=== PATIENT | male | born 1930 | race Caucasian/White ===

== ENCOUNTER 2016-12-13 17:47 | Inpatient (IN) | payer OTHER ==
[~2016-12-13] VITALS: Ht 193 cm; Wt 195.8 kg
--- NOTE | 2016-12-13 18:51 | DIAGNOSTIC IMAGING REPORT ---
PROCEDURE: XR CHEST 1 VIEW INDICATION: WEAKNESS TECHNIQUE: Portable AP view 06:24 p.m. COMPARISON: Chest x-ray 03/30/2012 FINDINGS: Horizontal artifacts. Lungs are clear. Left-sided pacemaker. Heart and mediastinum are normal. Thorax is normal. No significant interval change. IMPRESSION: 1. No acute changes 2. Pacemaker
--- NOTE | 2016-12-13 19:38 | ED NURSING NOTES ---
Clinical Report - Nurses [place] [address] [place] [address] 12/13/2016 17:51 Patient: LELA BRAVO TRIAGE Triage time 1800 PM. Acuity: LEVEL 3. Chief Complaint: (weakness, cellulitis B/L). Alert. No acute distress. SHIVANI COMA SCORE: Shivani Coma Scale: 15- eyes open spontaneously (4); best verbal response- oriented x 4 (5); best motor response- obeys commands (6). --18:31 Erica You R.N. 18:06 12/13/16. BP: 124/54 (regular adult cuff) taken on the left arm, while lying. HR: 75. RR: 24. O2 saturation: 100%. Temp: 97.6 F. Pain level now: 5/10. --18:31 Erica You R.N. Weight: 181.4 kg stated. Height/Length: 76 inches Per Patient. BMI: 48.7. --18:06 Erica You R.N. Medications Albuterol Sulfate HFA Inhalation. --18:16 Erica You R.N. AmLODIPine Besylate Oral 10 mg, daily. --18:16 Erica oYu R.N. Plavix Oral 75 mg, daily. --18:18 Erica You R.N. Digoxin Oral 0.25 mg, daily. --18:18 Erica You R.N. Finasteride Oral 5 mg. --18:18 Erica You R.N. Gabapentin Oral (Capsule 300 mg), 3x a day. --18:20 Erica You R.N. Losartan Potassium Oral 50 mg. --18:20 Erica You R.N. Omeprazole Oral 20 mg, daily. --18:21 Erica You R.N. Prevastatin. --18:23 Erica You R.N. ROPINIRole HCl Oral (Tablet 1 mg) 2 tablets. --18:24 Erica You R.N. Tramadol HCL Oral 50 mg, daily as needed. --18:25 Erica You R.N. TraZODone HCl Oral 50 mg, daily. --18:25 Erica You R.N. Warfarin Sodium Oral 2 mg, daily. --18:26 Erica You R.N. Allergies Codeine. --20:57 Erica You R.N. Medication/allergy information source: the patient and patient's imported external medical record. --18:31 Erica You R.N. History Arrived by EMS. Primary physician (Jarrod). ( Pt brought in by EMS due to weakness and b/l lower extremity cellulitis, pt states has been falling times 2 today and a couple of times this week. Lives at home alone with demented . Family is concern and "wanting him to stay"). Onset. (3 weeks). He has had weakness, a cough and difficulty breathing. Reports muscle aches. 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 See EMS report. PAST MEDICAL HX: Immunizations: up-to-date. SOCIAL HX: Former smoker, end date 1990. Occasional alcohol use. No drug use. No infectious disease exposure. ABUSE ASSESSMENT: No report of abuse. SELF HARM ASSESSMENT: A self harm assessment was performed. The patient answered "no" to the question "Do you have thoughts of harming or killing yourself?" and "Have you recently had thoughts about harming or killing others?". NUTRITIONAL RISK ASSESSMENT: The nutritional risk assessment revealed no deficiencies. FUNCTIONAL ASSESSMENT: Functional assessment: no impairments noted. LEARNING NEEDS ASSESSMENT: The learning needs assessment revealed no barriers. SKIN INTEGRITY ASSESSMENT: Skin integrity risk assessment completed. No skin integrity risk identified. --18:31 Erica You R.N. PROBLEMS: Coronary Artery Disease. Atrial Fibrillation. Neuropathy. Immunizations. Hypertension. Myocardial Infarction. COPD - Chronic Obstructive Pulmonary Disease. Hypercholesterolemia. --18:06 Erica You R.N. ADDITIONAL SURGERIES: Cardiac Catheterization. Cardiac Procedures. L Leg Fx Repair. Pacemaker. --18:06 Erica You R.N. Interventions ID band on patient. --18:31 Erica You R.N. PHYSICAL ASSESSMENT To room via stretcher. GENERAL / NEURO / PSYCH: Alert. Oriented X 4. Appears in no acute distress. Appears anxious. He has had constant, generalized weakness. HEENT: Pupils equal, round and reactive to light. RESPIRATORY: Decreased breath sounds in the bases bilaterally; decreased breath sounds in the right lung base posteriorly; decreased breath sounds in the left lung base posteriorly. Inspiratory bilateral wheezes in the bases. CVS: Pulses: right dorsalis pedis 2+, left dorsalis pedis 2+, right posterior tibial 2+ and left posterior tibial 2+. Capillary refill is greater than 2 seconds. Pulses within normal limits. SKIN: Skin is warm and dry. Skin breakdown noted. --18:57 Erica You R.N. NURSING PROGRESS NOTES 18:37 12/13/2016 Site #1 started via IV in the right upper arm with an 18g angiocath, with aseptic technique and good blood return; one attempt. Blood drawn: rainbow set and cultures x1. Labeled in the presence of the patient and sent to the lab. Saline lock flushed with 10 mL saline (ultrasound guidance x 20 minutes). --18:47 Heidy Colon R.N. 18:45 12/13/16. BP: 96/45. HR: 60. RR: 18. O2 saturation: 94%. O2 started via nasal cannula at 2 liters/minute. Pain level now: 12/23. --19:00 Erica You R.N. Cardiac rhythm: atrial pacing and ventricular pacing. The initial plan of care for this patient has been created This plan of care was discussed with the patient. Oxygen administered by nasal cannula. assistant store manager trainee, pulse oximeter and NIBP monitor placed on patient. Patient gowned. Reassurance given. Reassessment after oxygen administered. He is calm. Overall patient status is the same- he states feels the same. ( B/L lower extremity with redness and warmth noted, pt denies having). Two patient identifiers checked. Call light placed in reach. Side rails up x 1. Bed placed in lowest position. Brakes of bed on. --19:00 Erica You R.N. 20:16 12/13/16. Cardiac rhythm: atrial pacing. Oxygen administered by nasal cannula at 2 liters. Monitoring of patient in place. Reassurance given. Reassessment after oxygen administered. He is calm. Overall patient status is the same- he states feels the same. RESPIRATORY: Expiratory bilateral wheezes in the bases. Two patient identifiers checked. Call light placed in reach. Side rails up x 2. Bed placed in lowest position. Brakes of bed on. --20:16 Erica You R.N. 20:00 12/13/16. BP: 96/58 (regular adult cuff) taken on the left arm, via an automated monitor, while lying. HR: 60. RR: 17. O2 saturation: 100% on nasal cannula at 2 liters/minute. Pain level now: 12/23. --20:16 Ercia You R.N. Cardiac rhythm: atrial pacing. Reassessment after oxygen administered. Overall patient status is the same- he states feels the same. --20:17 Erica You R.N. 19:06 12/13/16. BP: 99/52 (regular adult cuff) taken on the left arm, via an automated monitor, while lying. HR: 60. RR: 18. O2 saturation: 100% on room air. Pain level now: 10/25. --20:17 Erica You R.N. Patient ID band checked for patient name, birthdate and medical record number: patient confirmed. Catheterized urine collected with return of yellow-colored clear urine; sample sent to lab for urinalysis. Specimen labeled in the presence of the patient. ( pt cath as ordered due to pt unable to give us urine, pt tolerated procedure well. Awaiting on results, family spoken to about guidelines of admission, emotional support provided. [place] provided, vss). --20:27 Erica You R.N. 20:13 12/13/2016 Albuterol Neb [place] Nebulizer 1 unit dose given. Given by the respiratory therapist. Allergies verified and confirmed 5 rights. --20:28 Erica You R.N. 20:34 12/13/2016 Started bag #1 1000 mL IV Fluids IV NS (Saline); at 1000 mL/hr over 1 hour(s) via site #1 via IV pump. Allergies verified and confirmed 5 rights. IV patency established. IV site checked: no pain, redness, or swelling. IV flushed thoroughly pre- and post-medication administration. --20:34 Erica You R.N. 21:45 12/13/2016 IV Fluids IV NS Discontinued: bag #1 completed upon transfer. Total amount infused: 1000 mL. IV patency established. IV site checked: no pain, redness, or swelling. IV flushed thoroughly. --22:17 Erica You R.N. DISPOSITION / DISCHARGE 21:37 12/13/2016 Site #1 removed upon transfer. --22:03 Erica You R.N. Cardiac rhythm: atrial pacing. Departure time: 2155 PM. Condition at departure: improved and stable. The goals identified in the patient's plan of care were met. Transported via wheelchair by transport team. Report was given to a nurse via a phone call. Report included patient's care, treatment, medications, reviewed medication reconcilliation, and condition (including any recent changes or anticipated changes). All questions were answered. Report was acknowledged and care was transferred. (RN Cat). ( pt transferred to unit safely). Patient's personal items include: shirt, undergarments and lower denture; items were placed in belongings bag and transported with the patient. --22:16 Erica You R.N. 21:02 12/13/16. BP: 101/44 (large adult cuff) taken on the left arm, via an automated monitor, while sitting. HR: 60. RR: 18. O2 saturation: 95% on nasal cannula at 2 liters/minute. Temp: 98.6 F (oral). Pain level now: 0/10. --22:16 Erica You R.N. Locked/Released at 12/13/2016 22:18 by Erica You R.N.
--- NOTE | 2016-12-13 19:38 | ED ORDER SUMMARY ---
..... Patient: LELA BRAVO OrderSheet [facility] VisitID: [id number] [place] [address] 86y, M Registration Date/Time: 12/13/2016 ORDER SHEET Weight: 181.4 kg (stated) Allergies: Codeine GENERAL ORDERS: Chest 1V Urgent (18:21 12/13/2016 HBivens A.R.N.P.) (Ack 18:25 KHoerner) (18:47 KWilliams R.N.) CBC w Diff Urgent (18:21 12/13/2016 HBivens A.R.N.P.) (Ack 18:25 KHoerner) (18:47 KWilliams R.N.) CMP Urgent (18:21 12/13/2016 HBivens A.R.N.P.) (Ack 18:25 KHoerner) (18:47 KWilliams R.N.) BNP Urgent (18:21 12/13/2016 HBivens A.R.N.P.) (Ack 18:25 KHoerner) (18:47 KWilliams R.N.) UA-Culture if indicated Urgent (18:21 12/13/2016 HBivens A.R.N.P.) (Ack 18:25 KHoerner) (19:29 EHassan R.N.) MEDICATION ORDERS: Albuterol Neb Tx 1 unit dose (NOW) (20:16 12/13/2016 EHassan R.N. verbal order read back to HBivens A.R.N.P.) (20:28 EHassan R.N.) IV FLUIDS: IV Saline Lock (18:21 12/13/2016 HBivens A.R.N.P.) (18:47 KWilliams R.N.) IV NS : initial bolus 1000 mL (1000 mL/hr), then none - (NOW) (20:27 12/13/2016 HBivens A.R.N.P.) (20:34 EHassan R.N.) ORDER SHEET NOTES: [Electronically signed by Tiara FoxR.N.PAnktia (21:58 12/13/2016)] [Electronically signed by Erica You R.N. (:18 12/13/2016)] [Electronically locked/signed by Erica You R.N. (:12/13/2016)]
--- NOTE | 2016-12-13 19:38 | ED ORDER SUMMARY ---
..... Patient: LELA BRAVO OrderSheet [facility] VisitID: [id number] [place] [address] 86y, M Registration Date/Time: 12/13/2016 ORDER SHEET Weight: 181.4 kg (stated) Allergies: Codeine GENERAL ORDERS: Chest 1V Urgent (18:21 12/13/2016 HBivens A.R.N.P.) (Ack 18:25 KHoerner) (18:47 KWilliams R.N.) CBC w Diff Urgent (18:21 12/13/2016 HBivens A.R.N.P.) (Ack 18:25 KHoerner) (18:47 KWilliams R.N.) CMP Urgent (18:21 12/13/2016 HBivens A.R.N.P.) (Ack 18:25 KHoerner) (18:47 KWilliams R.N.) BNP Urgent (18:21 12/13/2016 HBivens A.R.N.P.) (Ack 18:25 KHoerner) (18:47 KWilliams R.N.) UA-Culture if indicated Urgent (18:21 12/13/2016 HBivens A.R.N.P.) (Ack 18:25 KHoerner) (19:29 EHassan R.N.) MEDICATION ORDERS: Albuterol Neb Tx 1 unit dose (NOW) (20:16 12/13/2016 EHassan R.N. verbal order read back to HBivens A.R.N.P.) (20:28 EHassan R.N.) IV FLUIDS: IV Saline Lock (18:21 12/13/2016 HBivens A.R.N.P.) (18:47 KWilliams R.N.) IV NS : initial bolus 1000 mL (1000 mL/hr), then none - (NOW) (20:27 12/13/2016 HBivens A.R.N.P.) (20:34 EHassan R.N.) ORDER SHEET NOTES: [Electronically signed by Tiara FoxR.N.PAnkita (21:58 12/13/2016)] [Electronically signed by Erica You R.N. (:18 12/13/2016)] [Electronically locked/signed by Erica You R.N. (:12/13/2016)]
--- NOTE | 2016-12-13 19:38 | ED CLINICAL REPORT ---
Clinical Report - Physicians/Mid Levels [facility] [address] [place] [place] [address] 12/13/2016 17:51 Patient: LELA BRAVO Time Seen: 18:08; initial patient contact, initial documentation, patient care assumed. Arrived- By ambulance. Historian- patient and family. HISTORY OF PRESENT ILLNESS Chief Complaint: WEAKNESS. This started about 2 - 3 weeks ago and is still present and worsening. The patient has had weakness. No numbness, tingling, impaired speech or swallowing or visual disturbance. No recent fall. He has had difficulty walking. It has been associated with weakness in both legs. No history of incontinence, affect changes, dizziness, recent trauma or headaches. No history of coordination problems. The patient has not had a shuffling gait. No dizziness. Usually is alert and oriented X3 and has normal mobility. (and uses power scooter). He is usually alert, oriented x3 and usually walks only with assistance. (so weak that he can not get out of chair to get into power scooter, getting weaker each day, and fell a few times). Similar symptoms previously: None. Recent medical care: Not recently seen/assessed. REVIEW OF SYSTEMS No fever, diarrhea, black stools, difficulty with urination or vomiting. No bloody stools. He has had difficulty breathing and a cough. All systems otherwise negative, except as recorded above. PAST HISTORY See nurses notes. ( PROBLEMS: Coronary Artery Disease. Atrial Fibrillation. Neuropathy. Immunizations. Hypertension. Myocardial Infarction. COPD - Chronic Obstructive Pulmonary Disease. Hypercholesterolemia. --18:06 Erica You RAnkitaN. ADDITIONAL SURGERIES: Cardiac Catheterization. Cardiac Procedures. L Leg Fx Repair. Pacemaker. --18:06 Erica You R.N.). SOCIAL HISTORY Never smoker. Occasional alcohol use. No drug use. No recent travel. Is a local resident. FAMILY HISTORY Negative. ADDITIONAL NOTES The nursing notes have been reviewed with agreement regarding the chief complaint, HPI, ROS, PMH and patient medications and allergies. PHYSICAL EXAM Vital Signs: 12/13/2016 18:06 BP: 124/54. HR: 75. RR: 24. O2 saturation: 100%. Temp: 97.6 F. Pain level now: 02/22. Have been reviewed as normal and appear to be correct. Appearance: Alert. No acute distress. Head: Head atraumatic. Eyes: Pupils equal, round and reactive to light. ENT: Normal ENT inspection. Airway intact. Pharynx normal. Neck: Normal inspection. Neck supple. CVS: Normal heart rate and rhythm. Heart sounds normal. Pulses normal. Respiratory: No respiratory distress. Breath sounds normal. Abdomen: Soft and nontender. No organomegaly. Severely obese (morbid). Back: Normal inspection. Rectal: Rectal exam normal. Skin: Skin warm and dry. Moderate pallor. Abnormal skin color. No rash. Normal skin turgor. (cellulitis areas noted to B shins, fungus/cellulitis to perineum and groin area). Extremities: Extremities exhibit normal ROM. No lower extremity edema. Neuro: Alert. Oriented X 3. Mood/affect normal. Speech normal. Cranial nerves normal (as tested). No cerebellar findings. No motor deficit. No sensory deficit. LABS, X-RAYS, AND EKG Chest X-ray: Normal Chest X-Ray. (IMPRESSION: 1. No acute changes 2. Pacemaker Electronically Final signed by:Warren Reynolds MD 12/13/2016 6:51:31 PM). The X-rays were interpreted by the radiologist and contemporaneously by me. Laboratory Tests: CBC w Diff: (LETICIA: 12/13/2016 18:40) ( MsgRcvd 12/13/2016 18:51) Final results Test Result Flag Units (Reference) WHITE BLOOD COUNT 8.6 K/uL (4.5-11.5) RED BLOOD COUNT 4.25 L M/uL (4.50-5.90) HEMOGLOBIN 8.4 L gm/dL (13.5-17.5) HEMATOCRIT 29.0 L % (41.0-53.0) MEAN CELL VOLUME 68 L fL (80-100) MEAN CORPUSCULAR HGB 20 L pg (26-34) MEAN CORPUSCULAR HGB CONC 29 L g/dL (31-37) RED CELL DISTRIBUTION WIDTH 23.0 H % (11.6-14.8) PLATELET COUNT 255 K/uL (150-400) NEUTROPHIL % 75.7 H % (50-75) LYMPH % 10.2 L % (25-40) MONO % 9.4 % (3-14) EOSINOPHIL % 4.4 H % (0-4) BASOPHIL % 0.3 % (0-2) BNP: (LETICIA: 12/13/2016 18:40) ( MsgRcvd 12/13/2016 19:11) Final results Test Result Flag Units (Reference) B-TYPE NATRIURETIC PEPTIDE 759 H pg/ml (5-100) CMP: (LETICIA: 12/13/2016 18:40) ( MsgRcvd 12/13/2016 19:07) Final results Test Result Flag Units (Reference) GLUCOSE 106 mg/dL (70-110) BUN 63 H mg/dL (7-18) CREATININE 1.6 H mg/dL (0.6-1.3) Estimated GFR 43.67 mL/min Estimated GFR- 52.93 mL/min Note: Persistent reduction over 3 months in eGFR<60 mL/min/1.73 m2 defines CKD. Patients with eGFR values>=60 mL/min/1.73 m2 may also have CKD if evidence ofpersistent proteinuria. Additional information may be foundat www.kidney.org. SODIUM 142 mmol/L (136-145) POTASSIUM 4.6 mmol/L (3.5-5.1) CHLORIDE 107 mmol/L (98-107) CARBON DIOXIDE 29 mmol/L (21-32) CALCIUM 7.7 L mg/dL (8.5-10.1) TOTAL PROTEIN 7.1 g/dL (6.4-8.2) ALBUMIN 2.8 L g/dL (3.3-5.0) BILIRUBIN, TOTAL 0.4 mg/dL (0.0-1.0) ALKALINE PHOSPHATASE 76 U/L (46-116) AST (SGOT) 24 U/L (15-37) ALT (SGPT) 17 U/L (12-78) . PROGRESS AND PROCEDURES Course of Care: 1935. tx options being discussed with Dr. Vivar, not sure if pt meets admission criteria, agreed to call him back after urine results 1944. tx options being discussed with pt and family, upon entering room pt sitting on side of bed, stood and ambulated with assistance to head of bed for repositioning, rectal exam done 20:27 12/13/16. spoke to Dr Vivar again re lab result update 21:21 12/13/16. Dr Vivar here. Discussed case with on-call health care provider, (call returned 19:36 Dr Vivar). Reviewed test results and need for additional work-up. Agreed upon decision to admit. Health care provider will see patient in hospital. Differential Diagnosis: Other possible considerations: anemia, chf, cellulitis, thyroid, electrolyte imbalance. Above considerations are based on history, physical exam and laboratory data. Differential diagnosis was discussed with patient. Disposition: Admitted to Acute Care. 20:27. Condition: good and stable. CLINICAL IMPRESSION Acute generalized weakness. Dehydration. Acute renal insufficiency. Mild acute anemia. Cellulitis of the right lower leg and left lower leg. (Electronically signed by Tiara Fox A.R.N.P. 12/13/2016 21:58)
--- NOTE | 2016-12-13 21:13 | History & Physical Report ---
Admission Admit Date 12/13/16 History Chief Complaint Weakness History of Present Illness Patient is an 86 year old male with a past medical history of Obesity, Coronary Artery Disease, Essential Hypertension, Hyperlipidemia, Myocardial Infarction, Atrial Fibrillation, COPD, and a remote hx of Tobacco Use Disorder. He presents to the ER at [facility] complaining of generalized weakness. Pt states his symptoms have been present for nearly a month now, but seem to be worsening. Pt states recently has been falling at home as he is so weak. Pt states he is unable to complete his ADLs secondary to his profound weakness. Pt states he fell twice today while attempting to transfer. He normally uses a scooter to get around. Pt denies any nausea, vomiting, dizziness, headache, visual changes, chest pain, and shortness of breath. He also denies any dysuria and urinary frequency. In the ER, pt was found to have a significantly elevated BUN and Creatinine and he does not have a hx of CKD in the past. He has been taking all of his medications as prescribed and has been eating and drinking normally. No other complaints or concerns at this time. Patient History 1. Essential hypertension 2. Hyperlipidemia 3. Coronary artery disease 4. Myocardial infarction 5. Atrial fibrillation 6. COPD (chronic obstructive pulmonary disease) Social History Pt does have a hx of tobacco use disorder, however he quit smoking in 1990. Pt denies consumption of alcohol and any hx of illicit drug use. Family History Family history was reviewed; no changes noted. Medications and Allergies Medications Current Medications Sig/Irlanda Start time Last Medication Dose Route Stop Time Status Admin Acetaminophen 650 MG Q6H PRN 12/13 2100 UNV PO Docusate Sodium 250 MG BID PRN 12/13 2100 UNV PO Hydromorphone HCl 1 MG Q6H PRN 12/13 2100 UNV IV Naloxone HCl 0.4 MG PRN PRN 12/13 2100 UNV IV Ondansetron HCl 4 MG Q6H PRN 12/13 2100 UNV IV Sodium Chloride 1,000 ML ASDIRECTED 12/13 2099 UNV IV Allergies Coded Allergies: Codeine (03/31/12) Review of Systems Other All systems reviewed and are negative except for what has already been mentioned in the HPI. Physical Exam Vital Signs / I&Os Vital Signs Date Time Temp Pulse Resp B/P Pulse O2 O2 Flow FiO2 Ox Delivery Rate 12/13 2010 97.6 75 18 124/54 100% NC 1.5 Other GENERAL: NAD; Pt laying comfortably in bed CARDIAC: RRR, No M/R/G appreciated PULM: Clear to auscultation bilaterally ABD: Soft, NT, ND, Positive BS in all quadrants; No hepatosplenomegaly appreciated EXT: No C/C/E in bilateral upper and lower extremity; No calve tenderness bilaterally SKIN: Warm, dry, pink, and intact NEURO: Alert and oriented x3; Following all commands PSYCH: Normal mood and affect LAB Results Laboratory Tests 12/13 Chemistry B-Natriuretic Peptide (5 - 100 pg/ml) 759 Urines Urine Color YELLOW Urine Appearance CLEAR Urine pH (5.0 - 8.0) 5.5 Ur Specific [place] (1.010 - 1.030) 1.020 Urine Protein (NEGATIVE) NEGATIVE Urine Ketones (NEGATIVE) NEGATIVE Urine Blood (NEGATIVE) NEGATIVE Urine Nitrite (NEGATIVE) NEGATIVE Urine Bilirubin (NEGATIVE) NEGATIVE Urine Urobilinogen (0.2 - 1.0 EU/dL) 0.2 Ur Leukocyte Esterase (NEGATIVE) NEGATIVE Urine RBC (0 - 1 rbc/hpf) NONE SEEN Urine WBC (0 - 1 wbc/hpf) RARE Ur Epithelial Cells (0 - 5 EPI/hpf) 0-1 Urine Bacteria (NONE SEEN) NONE SEEN Urine Glucose (NEGATIVE) NEGATIVE Urine Comment CULT NOT INDICATED 12/13 1839 Chemistry Plasma Sodium (136 - 145 mmol/L) 142 Plasma Potassium (3.5 - 5.1 mmol/L) 4.6 Plasma Chloride (98 - 107 mmol/L) 107 CO2 (Enzymatic) (21 - 32 mmol/L) 29 BUN (7 - 18 mg/dL) 63 Creatinine (0.6 - 1.3 mg/dL) 1.6 Est GFR ( Amer) (mL/min) 52.93 Est GFR (Non-Af Amer) (mL/min) 43.67 Glucose (70 - 110 mg/dL) 106 Plasma Calcium (8.5 - 10.1 mg/dL) 7.7 Total Bilirubin (0.0 - 1.0 mg/dL) 0.4 AST (15 - 37 U/L) 24 ALT (12 - 78 U/L) 17 Alkaline Phosphatase (46 - 116 U/L) 76 Total Protein (6.4 - 8.2 g/dL) 7.1 Albumin (3.3 - 5.0 g/dL) 2.8 Hematology WBC (4.5 - 11.5 K/uL) 8.6 RBC (4.50 - 5.90 M/uL) 4.25 Hgb (13.5 - 17.5 gm/dL) 8.4 Hct (41.0 - 53.0 %) 29.0 MCV (80 - 100 fL) 68 MCH (26 - 34 pg) 20 RDW (11.6 - 14.8 %) 23.0 Neut % (Auto) (50 - 75 %) 75.7 Lymph % (Auto) (25 - 40 %) 10.2 [place] % (Auto) (3 - 14 %) 9.4 Eos % (Auto) (0 - 4 %) 4.4 Baso % (Auto) (0 - 2 %) 0.3 Plt Count, EDTA (150 - 400 K/uL) 255 RBC Morphology (4358 A) 1+ MICROCYTOSIS PUBS MCHC (31 - 37 g/dL) 29 Imaging Chest x-ray does not reveal any acute cardiopulmonary process. Assessment and Plan Problem List 1. Acute kidney injury Plan - Etiology unclear - Will start pt on IV Normal Saline at 125 mL/hour - Avoid nephrotoxic substances - Hold home Losartan for now - Repeat BMP in AM - Check renal ultrasound in AM - Will check a urine Na and urine creatinine now 2. Generalized weakness Plan - Etiology unclear - Will have PT evaluation pt tomorrow 3. Essential hypertension Plan - Continue home Amlodipine 10 mg PO daily - Hold Losartan for now given #1 - Monitor BP closely 4. Hyperlipidemia Plan - Pt is normally on statin therapy at home and this will be continued 5. Coronary artery disease Plan - Continue home Plavix 75 mg PO daily - Continue home statin therapy, once dosage confirmed in AM 6. Atrial fibrillation Plan - This is paroxysmal - Continue home Warfarin 2 mg PO daily - Continue Digoxin 0.25 mg PO daily Pt is admitted to hospital under inaptient status as his length of stay is anticipated to be greater than 2 midnights
--- NOTE | 2016-12-13 22:18 | ED DISCHARGE INSTRUCTIONS ---
Patient: LELA BRAVO General Instructions [facility] VisitID: [id number] [address] [place] [address] 86y, M Registration Date/Time: 12/13/2016 Acute generalized weakness. Dehydration. Acute renal insufficiency. Mild acute anemia. Cellulitis of the right lower leg and left lower leg. (Electronically signed by Tiara Fox A.R.N.P. 12/13/2016 21:58)
--- NOTE | 2016-12-13 22:18 | ED MED RECONCILIATION SUMMARY ---
Patient: LELA BRAVO Medication Reconciliation Report [facility] VisitID: [id number] [address] [place] [address] 86y, M Registration Date/Time: 12/13/2016 Weight: 181.4 kg Height/Length: 76 in. BMI: 48.7 ALLERGIES: Codeine The patient's Home Medications are listed below: THE FOLLOWING MEDICATIONS NEED TO BE RECONCILED: Albuterol Sulfate HFA Inhalation AmLODIPine Besylate Oral 10 mg, daily Digoxin Oral 0.25 mg, daily Finasteride Oral 5 mg Gabapentin Oral (300 mg), 3x a day Losartan Potassium Oral 50 mg Omeprazole Oral 20 mg, daily Plavix Oral 75 mg, daily Prevastatin ROPINIRole HCl Oral (1 mg) 2 tablets Tramadol HCL Oral 50 mg, daily TraZODone HCl Oral 50 mg, daily Warfarin Sodium Oral 2 mg, daily The source(s) of the original Home Medication information: patient patient's imported external medical record The following Medications were given to the patient in the Emergency Department: Albuterol [Neb Tx] Neb TX 1 unit dose, administered: 12/13/2016 8:13:00 PM IV NS IV Fluids bolus 0, then 1000 mL/hr, administered: 12/13/2016 8:34:00 PM The following Medications were prescribed to the patient: None.
--- NOTE | 2016-12-13 22:18 | ED MAR SUMMARY ---
..... Medication Administration Record [facility] [address] [place] [address] Patient: LELA BRAVO Visit ID: [id number] 86y, M Weight: 181.4 kg Height/Length: 76 in BMI: 48.7 ALLERGIES: Codeine Given 20:13 12/13/2016 Erica You R.N. Medication Administered: ALBUTEROL [NEB TX], Dose: 1 unit dose Nebulizer Neb TX. Medication Ordered: Albuterol Neb Tx 1 unit dose (NOW). Start 20:34 12/13/2016 Erica You RAnkitaNAnkita, Stop 21:45 12/13/2016 Erica You R.N. Medication Administered: IV NS (SALINE), Dose: IV Fluids over 1 hour(s), Rate: 1000 mL/hr, Dispensed: 1000 mL bag, Site: #1 right upper arm. Medication Ordered: IV NS : initial bolus 1000 mL (1000 mL/hr), then none - (NOW).
--- NOTE | 2016-12-13 22:18 | ED MAR SUMMARY ---
..... Medication Administration Record [facility] [address] [place] [address] Patient: LELA BRAVO Visit ID: [id number] 86y, M Weight: 181.4 kg Height/Length: 76 in BMI: 48.7 ALLERGIES: Codeine Given 20:13 12/13/2016 Erica You R.N. Medication Administered: ALBUTEROL [NEB TX], Dose: 1 unit dose Nebulizer Neb TX. Medication Ordered: Albuterol Neb Tx 1 unit dose (NOW). Start 20:34 12/13/2016 Erica You RAnkitaNAnkita, Stop 21:45 12/13/2016 Erica You R.N. Medication Administered: IV NS (SALINE), Dose: IV Fluids over 1 hour(s), Rate: 1000 mL/hr, Dispensed: 1000 mL bag, Site: #1 right upper arm. Medication Ordered: IV NS : initial bolus 1000 mL (1000 mL/hr), then none - (NOW).
--- NOTE | 2016-12-13 22:18 | ED MED RECONCILIATION SUMMARY ---
Patient: LELA BRAVO Medication Reconciliation Report [facility] VisitID: [id number] [address] [place] [address] 86y, M Registration Date/Time: 12/13/2016 Weight: 181.4 kg Height/Length: 76 in. BMI: 48.7 ALLERGIES: Codeine The patient's Home Medications are listed below: THE FOLLOWING MEDICATIONS NEED TO BE RECONCILED: Albuterol Sulfate HFA Inhalation AmLODIPine Besylate Oral 10 mg, daily Digoxin Oral 0.25 mg, daily Finasteride Oral 5 mg Gabapentin Oral (300 mg), 3x a day Losartan Potassium Oral 50 mg Omeprazole Oral 20 mg, daily Plavix Oral 75 mg, daily Prevastatin ROPINIRole HCl Oral (1 mg) 2 tablets Tramadol HCL Oral 50 mg, daily TraZODone HCl Oral 50 mg, daily Warfarin Sodium Oral 2 mg, daily The source(s) of the original Home Medication information: patient patient's imported external medical record The following Medications were given to the patient in the Emergency Department: Albuterol [Neb Tx] Neb TX 1 unit dose, administered: 12/13/2016 8:13:00 PM IV NS IV Fluids bolus 0, then 1000 mL/hr, administered: 12/13/2016 8:34:00 PM The following Medications were prescribed to the patient: None.
--- NOTE | 2016-12-13 22:18 | ED DISCHARGE INSTRUCTIONS ---
Patient: LELA BRAVO General Instructions [facility] VisitID: [id number] [address] [place] [address] 86y, M Registration Date/Time: 12/13/2016 Acute generalized weakness. Dehydration. Acute renal insufficiency. Mild acute anemia. Cellulitis of the right lower leg and left lower leg. (Electronically signed by Tiara Fox A.R.N.P. 12/13/2016 21:58)
[2016-12-13 22:47] VITALS: BP 102/46
[2016-12-14] MEDS ORDERED: ALBUTEROL HFA60 DOSE IN (00:52)
[2016-12-14] MEDS ORDERED: DIGITEK0.25 MG PO (00:53)
[2016-12-14] MEDS ORDERED: PLAVIX75 MG PO (00:53)
[2016-12-14] MEDS ORDERED: AMLODIPINE BESY10 MG PO (00:53)
[2016-12-14] MEDS ORDERED: FINASTERIDE5 MG PO (00:54)
[2016-12-14] MEDS ORDERED: GABAPENTIN300 MG PO (00:54)
[2016-12-14] MEDS ORDERED: COZAAR50 MG PO (00:55)
[2016-12-14] MEDS ORDERED: OMEPRAZOLE20 M1 PO (00:55)
[2016-12-14] MEDS ORDERED: PRAVACHOL20 MG (00:56)
[2016-12-14] MEDS ORDERED: ROPINIROLE HCL1 MG PO (00:57)
[2016-12-14] MEDS ORDERED: TRAMADOL HCL50 MG PO (00:57)
[2016-12-14] MEDS ORDERED: TRAZODONE HCL50 MG PO (00:58)
[2016-12-14] MEDS ORDERED: COUMADIN2 MG PO (00:58)
[2016-12-14 02:48] VITALS: BP 139/95
[2016-12-14 07:17] VITALS: BP 132/89
[2016-12-14 11:30] VITALS: BP 137/58
[2016-12-14 14:40] VITALS: BP 124/54
--- NOTE | 2016-12-14 15:25 | Progress Note ---
Subjective General Note Date: December 14, 2016 Admission Date: December 13, 2016 Hospital Day: 2 PCP: Shorty Ibarra-[facility] [place] Status: Inpatient Advanced Directive: FULL CODE Room: 207 Brief History: The patient is a 86-year-old white male with a significant past medical history of morbid obesity, COPD, coronary artery disease, hypertension, chronic anticoagulation, atrial fibrillation, heart block status post pacemaker placement, who presented to [facility] emergency department secondary to generalized weakness. [facility] ER evaluation was consistent with acute renal insufficiency, generalized weakness, hypertension, and paroxysmal atrial fibrillation. Secondary to the above, the patient was admitted by Yao Vivar M.D. for further evaluation and treatment. For other history present illness, past medical history, family history, social history, review of systems, and admission physical examination please see the patient's history and physical examination and ER visit note in the patient's medical record. Subjective: The patient states he is doing somewhat better today. Persistent lower extremity edema, weakness Patient requests: None Medications and Allergies Medications Current Medications Sig/Irlanda Start time Last Medication Dose Route Stop Time Status Admin Nystatin See Dose TID 12/14 2200 AC Insts (1) TOP Digoxin 250 MCG DAILY@1400 12/14 1400 AC PO Warfarin Sodium 2 MG DAILY@1400 12/14 1400 AC PO Albuterol/Ipratropium 3 ML Q6H PRN 12/14 1300 AC 12/14 IN 1418 Amlodipine Besylate 10 MG DAILY 12/14 0900 AC 12/14 PO 0805 Clopidogrel Bisulfate 75 MG DAILY 12/14 0900 AC 12/14 PO 0804 Acetaminophen 650 MG Q6H PRN 12/13 2130 AC 12/14 PO 0652 Docusate Sodium 250 MG BID PRN 12/13 2100 AC PO Hydromorphone HCl 1 MG Q6H PRN 12/13 2100 AC 12/14 IV 0804 Naloxone HCl 0.4 MG PRN PRN 12/13 2100 AC IV Ondansetron HCl 4 MG Q6H PRN 12/13 2100 AC IV Sodium Chloride 1,000 ML ASDIRECTED 12/13 2100 AC 12/14 IV 1409 Dose Instructions: (1)Nystatin: TO AFFECTED AREA Allergies Coded Allergies: Codeine (03/31/12) Physical Exam Vital Signs / I&Os Vital Signs Date Time Temp Pulse Resp B/P Pulse O2 O2 Flow FiO2 Ox Delivery Rate 12/14 1440 98.2 74 20 124/54 95 Nasal 4.0 Cannula 12/14 1427 4.0 12/14 1407 56 12/14 1130 97.9 59 20 137/58 95 Nasal 4.0 Cannula 12/14 0717 97.7 52 20 132/89 95 Nasal 4.0 Cannula 12/14 0248 97.5 77 24 139/95 93 Nasal 4.0 Cannula 12/14 0002 Nasal 4.0 Cannula 12/13 2247 102/46 12/136 97.3 59 24 94 Nasal 4.5 Cannula 12/13 2201 3.0 12/13 2010 1.5 I&O 12/14 0000 12/13 1600 12/13 0800 Intake Total 0 Output Total 0 Balance 0 General Appearance Alert, Oriented X3, Cooperative, No acute distress Lungs Minimal expiratory wheezes. Scattered rhonchi Cardiovascular Regular rate and rhythm, Normal S1 and S2, No murmurs, gallops, rubs Abdomen Normal bowel sounds, Soft, No tenderness, pendulous Extremities No cyanosis, No clubbing, edema to the thighs. Neurological Cranial nerves intact, No lateralizing signs Psych/Mental Status Mental status normal, Mood normal LAB Results Laboratory Tests 12/14 12/13 0550 2004 Chemistry Plasma Sodium (136 - 145 mmol/L) 142 Plasma Potassium (3.5 - 5.1 mmol/L) 4.8 Plasma Chloride (98 - 107 mmol/L) 108 CO2 (Enzymatic) (21 - 32 mmol/L) 26 BUN (7 - 18 mg/dL) 66 Creatinine (0.6 - 1.3 mg/dL) 1.7 Est GFR ( Amer) (mL/min) 49.36 Est GFR (Non-Af Amer) (mL/min) 40.72 Glucose (70 - 110 mg/dL) 135 Plasma Calcium (8.5 - 10.1 mg/dL) 7.4 Hematology WBC (4.5 - 11.5 K/uL) 9.5 RBC (4.50 - 5.90 M/uL) 4.10 Hgb (13.5 - 17.5 gm/dL) 8.2 Hct (41.0 - 53.0 %) 28.1 MCV (80 - 100 fL) 68 MCH (26 - 34 pg) 20 RDW (11.6 - 14.8 %) 22.1 Neut % (Auto) (50 - 75 %) 75.2 Lymph % (Auto) (25 - 40 %) 10.8 [place] % (Auto) (3 - 14 %) 10.1 Eos % (Auto) (0 - 4 %) 3.7 Baso % (Auto) (0 - 2 %) 0.2 Plt Count, EDTA (150 - 400 K/uL) 235 RBC Morphology (36514 A) 2+ ANISOCYTOSIS PUBS MCHC (31 - 37 g/dL) 29 Urines Urine Color YELLOW Urine Appearance CLEAR Urine pH (5.0 - 8.0) 5.5 Ur Specific [place] (1.010 - 1.030) 1.020 Urine Protein (NEGATIVE) NEGATIVE Urine Ketones (NEGATIVE) NEGATIVE Urine Blood (NEGATIVE) NEGATIVE Urine Nitrite (NEGATIVE) NEGATIVE Urine Bilirubin (NEGATIVE) NEGATIVE Urine Urobilinogen (0.2 - 1.0 EU/dL) 0.2 Ur Leukocyte Esterase (NEGATIVE) NEGATIVE Urine RBC (0 - 1 rbc/hpf) NONE SEEN Urine WBC (0 - 1 wbc/hpf) RARE Ur Epithelial Cells (0 - 5 EPI/hpf) 0-1 Urine Bacteria (NONE SEEN) NONE SEEN Urine Glucose (NEGATIVE) NEGATIVE Urine Comment CULT NOT INDICATED 12/13 12/13 1840 1840 Chemistry Plasma Sodium (136 - 145 mmol/L) 142 Plasma Potassium (3.5 - 5.1 mmol/L) 4.6 Plasma Chloride (98 - 107 mmol/L) 107 CO2 (Enzymatic) (21 - 32 mmol/L) 29 BUN (7 - 18 mg/dL) 63 Creatinine (0.6 - 1.3 mg/dL) 1.6 Est GFR ( Amer) (mL/min) 52.93 Est GFR (Non-Af Amer) (mL/min) 43.67 Glucose (70 - 110 mg/dL) 106 Plasma Calcium (8.5 - 10.1 mg/dL) 7.7 Total Bilirubin (0.0 - 1.0 mg/dL) 0.4 AST (15 - 37 U/L) 24 ALT (12 - 78 U/L) 17 Alkaline Phosphatase (46 - 116 U/L) 76 B-Natriuretic Peptide (5 - 100 pg/ml) 759 Total Protein (6.4 - 8.2 g/dL) 7.1 Albumin (3.3 - 5.0 g/dL) 2.8 Hematology WBC (4.5 - 11.5 K/uL) 8.6 RBC (4.50 - 5.90 M/uL) 4.25 Hgb (13.5 - 17.5 gm/dL) 8.4 Hct (41.0 - 53.0 %) 29.0 MCV (80 - 100 fL) 68 MCH (26 - 34 pg) 20 RDW (11.6 - 14.8 %) 23.0 Neut % (Auto) (50 - 75 %) 75.7 Lymph % (Auto) (25 - 40 %) 10.2 [place] % (Auto) (3 - 14 %) 9.4 Eos % (Auto) (0 - 4 %) 4.4 Baso % (Auto) (0 - 2 %) 0.3 Plt Count, EDTA (150 - 400 K/uL) 255 RBC Morphology (4358 A) 1+ MICROCYTOSIS PUBS MCHC (31 - 37 g/dL) 29 Imaging Chest X-Ray IMPRESSION: 1. No acute changes 2. Pacemaker Dictated by: ABDI CUEVAS MD D: LANIRIS;12/13/16 4040 Assessment and Plan Problem List 1. COPD (chronic obstructive pulmonary disease) Plan -History of COPD -DuoNeb one via nebulizer every 6 hours, albuterol when necessary -Oxygen as necessary -Monitor 2. Generalized weakness Plan -Patient presents with generalized weakness. -Total body water elevated with generalized edema -BUN/creatinine suggestive of prerenal azotemia -Physical therapy evaluation -Probable need for long-term placement -Patient unable to arise from bed or carry out any significant ADLs 3. Coronary artery disease Plan -Patient with history of coronary artery disease, status post myocardial infarction -Asymptomatic this time -Monitor 4. Acute kidney injury Plan -Patient with elevated BUN/creatinine -BUN/creatinine ratio suggestive of prerenal azotemia -Monitor 5. Essential hypertension Plan -Patient with history of essential hypertension -Monitor -Blood pressure well controlled 124/54 mmHg -Low-salt diet 6. Anemia Status Acute Onset Date Unknown Plan -Patient with findings of anemia -Microcytic anemia most likely iron deficiency -MCV 68, H&H 8.2.1 -Check iron studies, B12, folate -Monitor 7. Chronic anticoagulation Status Chronic Onset Date Unknown Plan -Patient with history of chronic anticoagulation secondary to paroxysmal atrial fibrillation -Check INR -Continue anticoagulation Current status: Fair, unstable Anticipated discharge date: Anticipated discharge in 1-2 days with improved status Anticipated discharge placement: care home facility Patient care time: Time spent in chart review, patient interview, physical exam, CPOE, and care documentation: 35 minutes Visit to patient today: 2 Complexity of care: High E&M Codes Rounding: Inpt-High/[id number]
--- NOTE | 2016-12-14 15:25 | Progress Note ---
Subjective General Note Date: December 14, 2016 Admission Date: December 13, 2016 Hospital Day: 2 PCP: Shorty Ibarra[facility] [place] Status: Inpatient Advanced Directive: FULL CODE Room: 207 Brief History: The patient is a 86-year-old white male with a significant past medical history of morbid obesity, COPD, coronary artery disease, hypertension, chronic anticoagulation, atrial fibrillation, heart block status post pacemaker placement, who presented to [facility] emergency department secondary to generalized weakness. [facility] ER evaluation was consistent with acute renal insufficiency, generalized weakness, hypertension, and paroxysmal atrial fibrillation. Secondary to the above, the patient was admitted by Yao Vivar M.D. for further evaluation and treatment. For other history present illness, past medical history, family history, social history, review of systems, and admission physical examination please see the patient's history and physical examination and ER visit note in the patient's medical record. Subjective: The patient states he is doing somewhat better today. Persistent lower extremity edema, weakness Patient requests: None Medications and Allergies Medications Current Medications Sig/Irlanda Start time Last Medication Dose Route Stop Time Status Admin Nystatin See Dose TID 12/14 2200 AC Insts (1) TOP Digoxin 250 MCG DAILY@1400 12/14 1400 AC PO Warfarin Sodium 2 MG DAILY@1400 12/14 1400 AC PO Albuterol/Ipratropium 3 ML Q6H PRN 12/14 1300 AC 12/14 IN 1418 Amlodipine Besylate 10 MG DAILY 12/14 0900 AC 12/14 PO 0805 Clopidogrel Bisulfate 75 MG DAILY 12/14 0900 AC 12/14 PO 0804 Acetaminophen 650 MG Q6H PRN 12/13 2130 AC 12/14 PO 0652 Docusate Sodium 250 MG BID PRN 12/13 2100 AC PO Hydromorphone HCl 1 MG Q6H PRN 12/13 2100 AC 12/14 IV 0804 Naloxone HCl 0.4 MG PRN PRN 12/13 2100 AC IV Ondansetron HCl 4 MG Q6H PRN 12/13 2100 AC IV Sodium Chloride 1,000 ML ASDIRECTED 12/13 2100 AC 12/14 IV 1409 Dose Instructions: (1)Nystatin: TO AFFECTED AREA Allergies Coded Allergies: Codeine (03/31/12) Physical Exam Vital Signs / I&Os Vital Signs Date Time Temp Pulse Resp B/P Pulse O2 O2 Flow FiO2 Ox Delivery Rate 12/14 1440 98.2 74 20 124/54 95 Nasal 4.0 Cannula 12/14 1427 4.0 12/14 1407 56 12/14 1130 97.9 59 20 137/58 95 Nasal 4.0 Cannula 12/14 0717 97.7 52 20 132/89 95 Nasal 4.0 Cannula 12/14 0248 97.5 77 24 139/95 93 Nasal 4.0 Cannula 12/14 0002 Nasal 4.0 Cannula 12/13 2247 102/46 12/136 97.3 59 24 94 Nasal 4.5 Cannula 12/13 2201 3.0 12/13 2010 1.5 I&O 12/14 0000 12/13 1600 12/13 0800 Intake Total 0 Output Total 0 Balance 0 General Appearance Alert, Oriented X3, Cooperative, No acute distress Lungs Minimal expiratory wheezes. Scattered rhonchi Cardiovascular Regular rate and rhythm, Normal S1 and S2, No murmurs, gallops, rubs Abdomen Normal bowel sounds, Soft, No tenderness, pendulous Extremities No cyanosis, No clubbing, edema to the thighs. Neurological Cranial nerves intact, No lateralizing signs Psych/Mental Status Mental status normal, Mood normal LAB Results Laboratory Tests 12/14 12/13 0550 2004 Chemistry Plasma Sodium (136 - 145 mmol/L) 142 Plasma Potassium (3.5 - 5.1 mmol/L) 4.8 Plasma Chloride (98 - 107 mmol/L) 108 CO2 (Enzymatic) (21 - 32 mmol/L) 26 BUN (7 - 18 mg/dL) 66 Creatinine (0.6 - 1.3 mg/dL) 1.7 Est GFR ( Amer) (mL/min) 49.36 Est GFR (Non-Af Amer) (mL/min) 40.72 Glucose (70 - 110 mg/dL) 135 Plasma Calcium (8.5 - 10.1 mg/dL) 7.4 Hematology WBC (4.5 - 11.5 K/uL) 9.5 RBC (4.50 - 5.90 M/uL) 4.10 Hgb (13.5 - 17.5 gm/dL) 8.2 Hct (41.0 - 53.0 %) 28.1 MCV (80 - 100 fL) 68 MCH (26 - 34 pg) 20 RDW (11.6 - 14.8 %) 22.1 Neut % (Auto) (50 - 75 %) 75.2 Lymph % (Auto) (25 - 40 %) 10.8 [place] % (Auto) (3 - 14 %) 10.1 Eos % (Auto) (0 - 4 %) 3.7 Baso % (Auto) (0 - 2 %) 0.2 Plt Count, EDTA (150 - 400 K/uL) 235 RBC Morphology (04002 A) 2+ ANISOCYTOSIS PUBS MCHC (31 - 37 g/dL) 29 Urines Urine Color YELLOW Urine Appearance CLEAR Urine pH (5.0 - 8.0) 5.5 Ur Specific [place] (1.010 - 1.030) 1.020 Urine Protein (NEGATIVE) NEGATIVE Urine Ketones (NEGATIVE) NEGATIVE Urine Blood (NEGATIVE) NEGATIVE Urine Nitrite (NEGATIVE) NEGATIVE Urine Bilirubin (NEGATIVE) NEGATIVE Urine Urobilinogen (0.2 - 1.0 EU/dL) 0.2 Ur Leukocyte Esterase (NEGATIVE) NEGATIVE Urine RBC (0 - 1 rbc/hpf) NONE SEEN Urine WBC (0 - 1 wbc/hpf) RARE Ur Epithelial Cells (0 - 5 EPI/hpf) 0-1 Urine Bacteria (NONE SEEN) NONE SEEN Urine Glucose (NEGATIVE) NEGATIVE Urine Comment CULT NOT INDICATED 12/13 12/13 1840 1840 Chemistry Plasma Sodium (136 - 145 mmol/L) 142 Plasma Potassium (3.5 - 5.1 mmol/L) 4.6 Plasma Chloride (98 - 107 mmol/L) 107 CO2 (Enzymatic) (21 - 32 mmol/L) 29 BUN (7 - 18 mg/dL) 63 Creatinine (0.6 - 1.3 mg/dL) 1.6 Est GFR ( Amer) (mL/min) 52.93 Est GFR (Non-Af Amer) (mL/min) 43.67 Glucose (70 - 110 mg/dL) 106 Plasma Calcium (8.5 - 10.1 mg/dL) 7.7 Total Bilirubin (0.0 - 1.0 mg/dL) 0.4 AST (15 - 37 U/L) 24 ALT (12 - 78 U/L) 17 Alkaline Phosphatase (46 - 116 U/L) 76 B-Natriuretic Peptide (5 - 100 pg/ml) 759 Total Protein (6.4 - 8.2 g/dL) 7.1 Albumin (3.3 - 5.0 g/dL) 2.8 Hematology WBC (4.5 - 11.5 K/uL) 8.6 RBC (4.50 - 5.90 M/uL) 4.25 Hgb (13.5 - 17.5 gm/dL) 8.4 Hct (41.0 - 53.0 %) 29.0 MCV (80 - 100 fL) 68 MCH (26 - 34 pg) 20 RDW (11.6 - 14.8 %) 23.0 Neut % (Auto) (50 - 75 %) 75.7 Lymph % (Auto) (25 - 40 %) 10.2 [place] % (Auto) (3 - 14 %) 9.4 Eos % (Auto) (0 - 4 %) 4.4 Baso % (Auto) (0 - 2 %) 0.3 Plt Count, EDTA (150 - 400 K/uL) 255 RBC Morphology (4358 A) 1+ MICROCYTOSIS PUBS MCHC (31 - 37 g/dL) 29 Imaging Chest X-Ray IMPRESSION: 1. No acute changes 2. Pacemaker Dictated by: ABDI CUEVAS MD D: LANIRIS;12/13/16 0204 Assessment and Plan Problem List 1. COPD (chronic obstructive pulmonary disease) Plan -History of COPD -DuoNeb one via nebulizer every 6 hours, albuterol when necessary -Oxygen as necessary -Monitor 2. Generalized weakness Plan -Patient presents with generalized weakness. -Total body water elevated with generalized edema -BUN/creatinine suggestive of prerenal azotemia -Physical therapy evaluation -Probable need for shelter placement -Patient unable to arise from bed or carry out any significant ADLs 3. Coronary artery disease Plan -Patient with history of coronary artery disease, status post myocardial infarction -Asymptomatic this time -Monitor 4. Acute kidney injury Plan -Patient with elevated BUN/creatinine -BUN/creatinine ratio suggestive of prerenal azotemia -Monitor 5. Essential hypertension Plan -Patient with history of essential hypertension -Monitor -Blood pressure well controlled 124/54 mmHg -Low-salt diet 6. Anemia Status Acute Onset Date Unknown Plan -Patient with findings of anemia -Microcytic anemia most likely iron deficiency -MCV 68, H&H 8.2.1 -Check iron studies, B12, folate -Monitor 7. Chronic anticoagulation Status Chronic Onset Date Unknown Plan -Patient with history of chronic anticoagulation secondary to paroxysmal atrial fibrillation -Check INR -Continue anticoagulation Current status: Fair, unstable Anticipated discharge date: Anticipated discharge in 1-2 days with improved status Anticipated discharge placement: [facility] facility Patient care time: Time spent in chart review, patient interview, physical exam, CPOE, and care documentation: 35 minutes Visit to patient today: 2 Complexity of care: High E&M Codes Rounding: Inpt-High/[id number]
[2016-12-14 18:31] VITALS: BP 103/45
[2016-12-14 22:10] VITALS: BP 124/53
[2016-12-15 03:15] VITALS: BP 121/90
[2016-12-15 06:37] VITALS: BP 145/81
[2016-12-15 09:54] VITALS: BP 147/68
[2016-12-15 14:30] VITALS: BP 121/94
--- NOTE | 2016-12-15 17:44 | DIAGNOSTIC IMAGING REPORT ---
REFERRING PHYSICIAN/PROVIDER: Jarad Santana MD CONSULTING SOFTWARE ASSET MANAGEMENT ANALYST: Randy Harrell Jr MD INDICATION: CHF Procedure: A two-dimensional transthoracic echocardiogram with color flow and Doppler was performed in limited views only. The study quality was technically limited. There is no prior echocardiogram noted for this patient. Patient was not able to lie in supine position due to respiratory distress. The patient was in normal sinus rhythm during the exam. Left Ventricle: The left ventricle is grossly normal size. Left ventricular systolic function is probably normal. Diastolic function could not be accurately assessed due to unobtainable data. Right Ventricle: The right ventricle is mildly dilated. Right ventricular function cannot be assessed due to poor image quality. Mitral Valve: The mitral valve is not well visualized. The mitral valve is grossly normal. Aortic Valve: The aortic valve is not well visualized. There is no aortic regurgitation. Tricuspid Valve: The tricuspid valve is not well visualized. The tricuspid valve is not well visualized, but is grossly normal. Pulmonic Valve: The pulmonic valve is not well visualized. There is no significant valvular heart disease. Great Vessels: The aortic root is normal size. The ascending aorta is mildly enlarged. Pericardium/ Pleura There is no pericardial effusion. IMPRESSION: The left ventricle is grossly normal size. Left ventricular systolic function is probably normal. The right ventricle is mildly dilated. Right ventricular function cannot be assessed due to poor image quality. There is no obvious valvular heart disease. The aortic root is normal size. The ascending aorta is mildly enlarged. There is no pericardial effusion.
--- NOTE | 2016-12-15 18:00 | Progress Note ---
Subjective General Note Date: December 15, 2016 Admission Date: December 13, 2016 Hospital Day: 3 PCP: Shorty Ibarra-[facility] [place] Status: Inpatient Advanced Directive: FULL CODE Room: 207 Brief History: The patient is a 86-year-old white male with a significant past medical history of morbid obesity, COPD, coronary artery disease, hypertension, chronic anticoagulation, atrial fibrillation, heart block status post pacemaker placement, who presented to [facility] emergency department secondary to generalized weakness. [facility] ER evaluation was consistent with acute renal insufficiency, generalized weakness, hypertension, and paroxysmal atrial fibrillation. Secondary to the above, the patient was admitted by Yao Vivar M.D. for further evaluation and treatment. For other history present illness, past medical history, family history, social history, review of systems, and admission physical examination please see the patient's history and physical examination and ER visit note in the patient's medical record. Subjective: The patient states he is doing somewhat better today. Persistent lower extremity edema, weakness. Mild anxiety. Patient requests: None Medications and Allergies Medications Current Medications Sig/Irlanda Start time Last Medication Dose Route Stop Time Status Admin Hydrocortisone See Dose TID 12/15 1400 AC 12/15 Insts (1) TOP 1354 Nystatin See Dose TID 12/14 2200 AC 12/15 Insts (2) TOP 1327 Digoxin 250 MCG DAILY@1400 / 1400 AC 12/15 PO 1344 Albuterol/Ipratropium 3 ML Q6H PRN 12/14 1300 AC 12/15 IN 0755 Amlodipine Besylate 10 MG DAILY 12/14 0900 AC 12/15 PO 0826 Clopidogrel Bisulfate 75 MG DAILY 12/14 0900 AC 12/15 PO 0826 Acetaminophen 650 MG Q6H PRN 12/13 2130 AC 12/15 PO 1354 Docusate Sodium 250 MG BID PRN 12/13 2100 AC PO Hydromorphone HCl 1 MG Q6H PRN 12/13 2100 AC 12/15 IV 1438 Naloxone HCl 0.4 MG PRN PRN 12/13 2100 AC IV Ondansetron HCl 4 MG Q6H PRN 12/13 2100 AC IV Dose Instructions: (1)Hydrocortisone: APPLY TO AFFECTED AREA (2)Nystatin: TO AFFECTED AREA Allergies Coded Allergies: Codeine (03/31/12) Physical Exam Vital Signs / I&Os Vital Signs Date Time Temp Pulse Resp B/P Pulse O2 O2 Flow FiO2 Ox Delivery Rate 12/15 1637 Nasal 4.0 Cannula 12/15 1430 98.4 58 20 121/94 100 Nasal 6.0 Cannula 12/15 1344 60 12/15 1000 4.0 12/15 0954 97.5 76 21 147/68 94 Nasal 4.0 Cannula 12/15 0837 4.0 12/15 0637 96.4 59 16 145/81 94 Nasal 4.0 Cannula 12/15 0422 Nasal 4.0 Cannula 12/15 0315 97.9 62 16 121/90 94 Nasal 4.0 Cannula 12/14 2210 99.3 56 20 124/53 96 Nasal 4.0 Cannula 12/14 1831 97.3 90 20 103/45 94 Nasal 4.0 Cannula I&O 12/15 0000 12/14 1600 12/14 0800 Intake Total 1553 409 6882 Output Total 450 175 200 Balance 0571 049 1514 General Appearance Alert, Oriented X3, Cooperative, No acute distress Lungs Scattered rhonchi, minimal expiratory wheezes Cardiovascular Regular rate and rhythm, Normal S1 and S2 Abdomen Normal bowel sounds, Soft, No tenderness Extremities No cyanosis, No clubbing, bilateral lower extremity edema unchanged Skin erythematous patches anterior shins bilaterally Neurological Cranial nerves intact, No lateralizing signs Psych/Mental Status Mental status normal, Mood normal LAB Results Laboratory Tests 12/15 0745 Chemistry Plasma Sodium (136 - 145 mmol/L) 142 Plasma Potassium (3.5 - 5.1 mmol/L) 4.5 Plasma Chloride (98 - 107 mmol/L) 108 CO2 (Enzymatic) (21 - 32 mmol/L) 24 BUN (7 - 18 mg/dL) 53 Creatinine (0.6 - 1.3 mg/dL) 1.3 Est GFR ( Amer) (mL/min) >60 Est GFR (Non-Af Amer) (mL/min) 55.50 Glucose (70 - 110 mg/dL) 130 Plasma Calcium (8.5 - 10.1 mg/dL) 7.7 Total Bilirubin (0.0 - 1.0 mg/dL) 0.5 AST (15 - 37 U/L) 27 ALT (12 - 78 U/L) 16 Alkaline Phosphatase (46 - 116 U/L) 69 Total Protein (6.4 - 8.2 g/dL) 6.8 Albumin (3.3 - 5.0 g/dL) 2.7 Coagulation INR (0.8 - 1.2) 3.7 Hematology WBC (4.5 - 11.5 K/uL) 9.6 RBC (4.50 - 5.90 M/uL) 4.13 Hgb (13.5 - 17.5 gm/dL) 8.3 Hct (41.0 - 53.0 %) 28.3 MCV (80 - 100 fL) 69 MCH (26 - 34 pg) 20 RDW (11.6 - 14.8 %) 22.4 Neut % (Auto) (50 - 75 %) 75.4 Lymph % (Auto) (25 - 40 %) 10.7 [place] % (Auto) (3 - 14 %) 9.6 Eos % (Auto) (0 - 4 %) 4.0 Baso % (Auto) (0 - 2 %) 0.3 Plt Count, EDTA (150 - 400 K/uL) 233 RBC Morphology (17096 A) 1+ POIKILOCYTOSIS PUBS MCHC (31 - 37 g/dL) 29 Assessment and Plan Problem List 1. COPD (chronic obstructive pulmonary disease) Plan -mild persistent wheezing -DuoNeb every 6 hours, albuterol every 3 hours when necessary -Monitor O2 requirements which appears stable -Check arterial blood gas 2. Generalized weakness Plan -unchanged -Physical therapy consultation/follow-up -Patient will [facility] in [facility] for ongoing care posthospitalization 3. Anemia Status Acute Onset Date Unknown Plan -Mild -Iron studies consistent with iron deficiency anemia -Monitor -Ferrous sulfate 325 mg by mouth twice a day. 4. Chronic anticoagulation Status Chronic Onset Date Unknown Plan -persistent elevation of INR -INR 3.7 -Hold Coumadin -Monitor 5. Atrial fibrillation Plan -patient with history of PAF -Sinus rhythm -Continue outpatient medical regimen/anticoagulation -Monitor -echocardiogram obtained showing normal left ventricular function, no significant valvular abnormalities 6. Coronary artery disease Plan -Patient with history of coronary disease -No complaints of chest pain -Monitor Current status: Fair, unchanged Anticipated discharge date: Anticipated discharge in 2-3 days Anticipated discharge placement: residential facility Patient care time: Time spent in chart review, patient interview, physical exam, CPOE, and care documentation: 25 minutes Visit to patient today: 1 Complexity of care: Moderate E&M Codes Rounding: Inpt-Moderate/[id number]
--- NOTE | 2016-12-15 18:00 | Progress Note ---
Subjective General Note Date: December 15, 2016 Admission Date: December 13, 2016 Hospital Day: 3 PCP: Shorty Ibarra-[facility] [place] Status: Inpatient Advanced Directive: FULL CODE Room: 207 Brief History: The patient is a 86-year-old white male with a significant past medical history of morbid obesity, COPD, coronary artery disease, hypertension, chronic anticoagulation, atrial fibrillation, heart block status post pacemaker placement, who presented to [facility] emergency department secondary to generalized weakness. [facility] ER evaluation was consistent with acute renal insufficiency, generalized weakness, hypertension, and paroxysmal atrial fibrillation. Secondary to the above, the patient was admitted by Yao Vivar M.D. for further evaluation and treatment. For other history present illness, past medical history, family history, social history, review of systems, and admission physical examination please see the patient's history and physical examination and ER visit note in the patient's medical record. Subjective: The patient states he is doing somewhat better today. Persistent lower extremity edema, weakness. Mild anxiety. Patient requests: None Medications and Allergies Medications Current Medications Sig/Irlanda Start time Last Medication Dose Route Stop Time Status Admin Hydrocortisone See Dose TID 12/15 1400 AC 12/15 Insts (1) TOP 1354 Nystatin See Dose TID 12/14 2200 AC 12/15 Insts (2) TOP 1327 Digoxin 250 MCG DAILY@1400 / 1400 AC 12/15 PO 1344 Albuterol/Ipratropium 3 ML Q6H PRN 12/14 1300 AC 12/15 IN 0755 Amlodipine Besylate 10 MG DAILY 12/14 0900 AC 12/15 PO 0826 Clopidogrel Bisulfate 75 MG DAILY 12/14 0900 AC 12/15 PO 0826 Acetaminophen 650 MG Q6H PRN 12/13 2130 AC 12/15 PO 1354 Docusate Sodium 250 MG BID PRN 12/13 2100 AC PO Hydromorphone HCl 1 MG Q6H PRN 12/13 2100 AC 12/15 IV 1438 Naloxone HCl 0.4 MG PRN PRN 12/13 2100 AC IV Ondansetron HCl 4 MG Q6H PRN 12/13 2100 AC IV Dose Instructions: (1)Hydrocortisone: APPLY TO AFFECTED AREA (2)Nystatin: TO AFFECTED AREA Allergies Coded Allergies: Codeine (03/31/12) Physical Exam Vital Signs / I&Os Vital Signs Date Time Temp Pulse Resp B/P Pulse O2 O2 Flow FiO2 Ox Delivery Rate 12/15 1637 Nasal 4.0 Cannula 12/15 1430 98.4 58 20 121/94 100 Nasal 6.0 Cannula 12/15 1344 60 12/15 1000 4.0 12/15 0954 97.5 76 21 147/68 94 Nasal 4.0 Cannula 12/15 0837 4.0 12/15 0637 96.4 59 16 145/81 94 Nasal 4.0 Cannula 12/15 0422 Nasal 4.0 Cannula 12/15 0315 97.9 62 16 121/90 94 Nasal 4.0 Cannula 12/14 2210 99.3 56 20 124/53 96 Nasal 4.0 Cannula 12/14 1831 97.3 90 20 103/45 94 Nasal 4.0 Cannula I&O 12/15 0000 12/14 1600 12/14 0800 Intake Total 7418 464 4396 Output Total 450 175 200 Balance 9669 417 2842 General Appearance Alert, Oriented X3, Cooperative, No acute distress Lungs Scattered rhonchi, minimal expiratory wheezes Cardiovascular Regular rate and rhythm, Normal S1 and S2 Abdomen Normal bowel sounds, Soft, No tenderness Extremities No cyanosis, No clubbing, bilateral lower extremity edema unchanged Skin erythematous patches anterior shins bilaterally Neurological Cranial nerves intact, No lateralizing signs Psych/Mental Status Mental status normal, Mood normal LAB Results Laboratory Tests 12/15 0745 Chemistry Plasma Sodium (136 - 145 mmol/L) 142 Plasma Potassium (3.5 - 5.1 mmol/L) 4.5 Plasma Chloride (98 - 107 mmol/L) 108 CO2 (Enzymatic) (21 - 32 mmol/L) 24 BUN (7 - 18 mg/dL) 53 Creatinine (0.6 - 1.3 mg/dL) 1.3 Est GFR ( Amer) (mL/min) >60 Est GFR (Non-Af Amer) (mL/min) 55.50 Glucose (70 - 110 mg/dL) 130 Plasma Calcium (8.5 - 10.1 mg/dL) 7.7 Total Bilirubin (0.0 - 1.0 mg/dL) 0.5 AST (15 - 37 U/L) 27 ALT (12 - 78 U/L) 16 Alkaline Phosphatase (46 - 116 U/L) 69 Total Protein (6.4 - 8.2 g/dL) 6.8 Albumin (3.3 - 5.0 g/dL) 2.7 Coagulation INR (0.8 - 1.2) 3.7 Hematology WBC (4.5 - 11.5 K/uL) 9.6 RBC (4.50 - 5.90 M/uL) 4.13 Hgb (13.5 - 17.5 gm/dL) 8.3 Hct (41.0 - 53.0 %) 28.3 MCV (80 - 100 fL) 69 MCH (26 - 34 pg) 20 RDW (11.6 - 14.8 %) 22.4 Neut % (Auto) (50 - 75 %) 75.4 Lymph % (Auto) (25 - 40 %) 10.7 White % (Auto) (3 - 14 %) 9.6 Eos % (Auto) (0 - 4 %) 4.0 Baso % (Auto) (0 - 2 %) 0.3 Plt Count, EDTA (150 - 400 K/uL) 233 RBC Morphology (38871 A) 1+ POIKILOCYTOSIS PUBS MCHC (31 - 37 g/dL) 29 Assessment and Plan Problem List 1. COPD (chronic obstructive pulmonary disease) Plan -mild persistent wheezing -DuoNeb every 6 hours, albuterol every 3 hours when necessary -Monitor O2 requirements which appears stable -Check arterial blood gas 2. Generalized weakness Plan -unchanged -Physical therapy consultation/follow-up -[facility] will [facility] in [facility] for [facility] care posthospitalization 3. Anemia Status Acute Onset Date Unknown Plan -Mild -Iron studies consistent with iron deficiency anemia -Monitor -Ferrous sulfate 325 mg by mouth twice a day. 4. Chronic anticoagulation Status Chronic Onset Date Unknown Plan -persistent elevation of INR -INR 3.7 -Hold Coumadin -Monitor 5. Atrial fibrillation Plan -patient with history of PAF -Sinus rhythm -Continue outpatient medical regimen/anticoagulation -Monitor -echocardiogram obtained showing normal left ventricular function, no significant valvular abnormalities 6. Coronary artery disease Plan -Patient with history of coronary disease -No complaints of chest pain -Monitor Current status: Fair, unchanged Anticipated discharge date: Anticipated discharge in 2-3 days Anticipated discharge placement: alf facility Patient care time: Time spent in chart review, patient interview, physical exam, CPOE, and care documentation: 25 minutes Visit to patient today: 1 Complexity of care: Moderate E&M Codes Rounding: Inpt-Moderate/[id number]
[2016-12-15 19:06] VITALS: BP 143/51
[2016-12-15 22:56] VITALS: BP 130/46
[2016-12-16 02:26] VITALS: BP 169/52
[2016-12-16 06:42] VITALS: BP 138/49
[2016-12-16 11:10] VITALS: BP 137/55
[2016-12-16 14:06] VITALS: BP 135/54
[2016-12-16 16:43] VITALS: BP 137/75
--- NOTE | 2016-12-16 17:03 | Progress Note ---
Subjective General Note Date: December 16, 2016 Admission Date: December 13, 2016 Hospital Day: 4 PCP: Shorty Ibarra[facility] [place] Status: Inpatient Advanced Directive: FULL CODE Room: 207 Brief History: The patient is a 86-year-old white male with a significant past medical history of morbid obesity, COPD, coronary artery disease, hypertension, chronic anticoagulation, atrial fibrillation, heart block status post pacemaker placement, who presented to [facility] emergency department secondary to generalized weakness. [facility] ER evaluation was consistent with acute renal insufficiency, generalized weakness, hypertension, and paroxysmal atrial fibrillation. Secondary to the above, the patient was admitted by Yao Vivar M.D. for further evaluation and treatment. For other history present illness, past medical history, family history, social history, review of systems, and admission physical examination please see the patient's history and physical examination and ER visit note in the patient's medical record. Subjective: The patient states he is doing somewhat better today. Persistent lower extremity edema, weakness. Mild anxiety. Patient requests: None Medications and Allergies Medications Current Medications Sig/Irlanda Start time Last Medication Dose Route Stop Time Status Admin Ropinirole HCl 2 MG QHS 12/16 2100 AC PO Trimethoprim/ 1 TAB BID 12/16 1700 UNVr Sulfamethoxazole PO Gabapentin 300 MG TID 12/16 1400 AC 12/16 PO 1330 Finasteride 5 MG DAILY 12/16 1111 AC 12/16 PO 1330 Ferrous Sulfate 325 MG BIDWC 12/16 0900 AC 12/16 PO 0906 Albuterol/Ipratropium 3 ML RTQ6H 12/16 0200 AC 12/16 IN 1352 Acetaminophen/ See Dose Q4H PRN 12/15 2015 AC 12/16 Hydrocodone Bitart Insts (1) PO 1330 Hydrocortisone See Dose TID 12/15 1400 AC 12/16 Insts (2) TOP 1408 Nystatin See Dose TID 12/14 2200 AC 12/16 Insts (3) TOP 1409 Digoxin 250 MCG DAILY@1400 12/14 1400 AC 12/16 PO 1330 Amlodipine Besylate 10 MG DAILY 12/14 0900 AC 12/16 PO 0906 Clopidogrel Bisulfate 75 MG DAILY 12/14 0900 AC 12/16 PO 0906 Acetaminophen 650 MG Q6H PRN 12/13 2130 AC 12/15 PO 1958 Docusate Sodium 250 MG BID PRN 02/28 2100 AC PO Naloxone HCl 0.4 MG PRN PRN 12/13 2099 AC IV Ondansetron HCl 4 MG Q6H PRN 12/13 2099 AC IV Dose Instructions: (1)Acetaminophen/Hydrocodone Bitart: 1 - 2 TABLETS (2)Hydrocortisone: APPLY TO AFFECTED AREA (3)Nystatin: TO AFFECTED AREA Allergies Coded Allergies: Codeine (03/31/12) Physical Exam Vital Signs / I&Os Vital Signs Date Time Temp Pulse Resp B/P Pulse O2 O2 Flow FiO2 Ox Delivery Rate 12/16 1643 98.2 65 20 137/75 88 Nasal 2.0 Cannula 12/16 1406 98.6 74 20 135/54 91 Nasal 2.0 Cannula 12/16 1340 2.0 12/16 1330 75 12/16 1110 98.8 66 22 137/55 92 2.0 12/16 1000 Nasal 2.0 Cannula 12/16 0642 99.0 69 21 138/49 91 Nasal 4.0 Cannula 12/16 0226 98.1 80 22 169/52 93 Nasal 4.0 Cannula 12/16 0130 Nasal 4.0 Cannula 12/16 0108 4.0 12/15 2256 98.1 90 20 130/46 96 Nasal 4.0 Cannula 12/15 2030 4.0 12/15 1934 4.0 12/15 1906 98.1 61 20 143/51 94 Nasal 4.0 Cannula I&O 12/16 0000 12/15 1600 12/15 0800 Intake Total 500 1440 1500 Output Total 728 641 3592 Balance -375 1140 500 General Appearance Cooperative, No acute distress, slightly lethargic Lungs Scattered rhonchi. No rales noted. Cardiovascular Regular rate and rhythm, Normal S1 and S2 Abdomen Normal bowel sounds, Soft, pendulous Extremities No cyanosis, No clubbing, Edema unchanged Neurological Cranial nerves intact, No lateralizing signs Psych/Mental Status Confused, mood depressed LAB Results Laboratory Tests 12/16 12/16 12/15 0603 0603 2004 Blood Gas Sample Site LR Total CO2 (24.0 - 30.0 mmol/L) 26.4 ABG pH (7.35 - 7.45) 7.42 ABG pCO2 at Pt Temp (35 - 45 mmHg) 39.2 ABG pO2 at Pt Temp (60.0 - 80.0 mmHg) 62.6 ABG HCO3 (20.0 - 26.0 mmol/L) 25.2 ABG O2 Sat Calc/Saeid (95.1 - 100.0 %) 93.3 ABG Base Excess (-6.0 - -6.0 mmol/L) 0.6 ABG Reduced Hgb (%) 6.6 ABG Carboxyhemoglobin (0.5 - 1.5 %) 2.7 ABG Methemoglobin (0.4 - 1.5 %) -0.5 Vivek Test YES Other Total Hgb (14.0 - 18.0 g/dL) 7.6 A-a O2 Gradient (7.0 - 14.0 mmHg) 150.6 Hgb O2 Saturation (95.0 - 100.0 %) 91.2 Respiration Rate (/MIN) 18 O2 Liters/Min (0 - 20 L/MIN) 4 Vent Mode NC FiO2 (20 - 101 %) 36 Chemistry Plasma Sodium (136 - 145 mmol/L) 142 Plasma Potassium (3.5 - 5.1 mmol/L) 4.4 Plasma Chloride (98 - 107 mmol/L) 108 CO2 (Enzymatic) (21 - 32 mmol/L) 25 BUN (7 - 18 mg/dL) 48 Creatinine (0.6 - 1.3 mg/dL) 1.4 Est GFR ( Amer) (mL/min) >60 Est GFR (Non-Af Amer) (mL/min) 50.95 Glucose (70 - 110 mg/dL) 154 Plasma Calcium (8.5 - 10.1 mg/dL) 7.6 B-Natriuretic Peptide (5 - 100 pg/ml) 792 Coagulation Protein C Antigen Pending Hematology WBC (4.5 - 11.5 K/uL) 8.6 RBC (4.50 - 5.90 M/uL) 3.75 Hgb (13.5 - 17.5 gm/dL) 7.4 Hct (41.0 - 53.0 %) 25.8 MCV (80 - 100 fL) 69 MCH (26 - 34 pg) 20 RDW (11.6 - 14.8 %) 22.4 Neut % (Auto) (50 - 75 %) 73.1 Lymph % (Auto) (25 - 40 %) 11.5 [place] % (Auto) (3 - 14 %) 10.6 Eos % (Auto) (0 - 4 %) 4.3 Baso % (Auto) (0 - 2 %) 0.5 Plt Count, EDTA (150 - 400 K/uL) 217 RBC Morphology (03613 A) 1+ OVALOCYTOSIS PUBS MCHC (31 - 37 g/dL) 29 Assessment and Plan Problem List 1. COPD (chronic obstructive pulmonary disease) Plan -Stable -Pulmonary exam improved -Continue DuoNeb every 6 hours -Supplemental oxygen as necessary 2. Generalized weakness Plan -Patient with generalized weakness -Status unchanged -Patient will require shelter placement due to morbid obesity, generalized weakness and inability to perform any ADLs. 3. Chronic anticoagulation Status Chronic Onset Date Unknown Plan -INR elevated 4.1 -Hold Coumadin -Monitor 4. Iron deficiency anemia Status Chronic Onset Date Unknown Plan -Patient with findings of iron deficiency anemia -Ferrous Sulfate 325 mg by mouth twice a day -Monitor 5. Atrial fibrillation Plan -Normal sinus rhythm -Monitor 6. Essential hypertension Plan -Blood pressure well controlled -Low-salt diet -Monitor 7. Cellulitis Status Acute Onset Date Unknown Plan -The patient has erythematous patches present anterior peng bilaterally -We'll begin Bactrim DS 1 by mouth twice a day -Monitor 8. Prerenal azotemia Status Acute Onset Date Unknown Plan -Mild -Improved -Continue present therapy -Monitor Current status: Fair, stable Anticipated discharge date: Anticipated discharge in 1-2 days Anticipated discharge placement: half-way facility Patient care time: Time spent in chart review, patient interview, physical exam, CPOE, and care documentation: 25 minutes Visit to patient today: 1 Complexity of care: Moderate
--- NOTE | 2016-12-16 17:03 | Progress Note ---
Subjective General Note Date: December 16, 2016 Admission Date: December 13, 2016 Hospital Day: 4 PCP: Shorty Ibarra-[facility] [place] Status: Inpatient Advanced Directive: FULL CODE Room: 207 Brief History: The patient is a 86-year-old white male with a significant past medical history of morbid obesity, COPD, coronary artery disease, hypertension, chronic anticoagulation, atrial fibrillation, heart block status post pacemaker placement, who presented to [facility] emergency department secondary to generalized weakness. [facility] ER evaluation was consistent with acute renal insufficiency, generalized weakness, hypertension, and paroxysmal atrial fibrillation. Secondary to the above, the patient was admitted by Yao Vivar M.D. for further evaluation and treatment. For other history present illness, past medical history, family history, social history, review of systems, and admission physical examination please see the patient's history and physical examination and ER visit note in the patient's medical record. Subjective: The patient states he is doing somewhat better today. Persistent lower extremity edema, weakness. Mild anxiety. Patient requests: None Medications and Allergies Medications Current Medications Sig/Irlanda Start time Last Medication Dose Route Stop Time Status Admin Ropinirole HCl 2 MG QHS 12/16 2100 AC PO Trimethoprim/ 1 TAB BID 12/16 1700 UNVr Sulfamethoxazole PO Gabapentin 300 MG TID 12/16 1400 AC 12/16 PO 1330 Finasteride 5 MG DAILY 12/16 1111 AC 12/16 PO 1330 Ferrous Sulfate 325 MG BIDWC 12/16 0900 AC 12/16 PO 0906 Albuterol/Ipratropium 3 ML RTQ6H 12/16 0200 AC 12/16 IN 1352 Acetaminophen/ See Dose Q4H PRN 12/15 2015 AC 12/16 Hydrocodone Bitart Insts (1) PO 1330 Hydrocortisone See Dose TID 12/15 1400 AC 12/16 Insts (2) TOP 1408 Nystatin See Dose TID 12/14 2200 AC 12/16 Insts (3) TOP 1409 Digoxin 250 MCG DAILY@1400 12/14 1400 AC 12/16 PO 1330 Amlodipine Besylate 10 MG DAILY 12/14 0900 AC 12/16 PO 0906 Clopidogrel Bisulfate 75 MG DAILY 12/14 0900 AC 12/16 PO 0906 Acetaminophen 650 MG Q6H PRN 12/13 2130 AC 12/15 PO 1958 Docusate Sodium 250 MG BID PRN 02/28 2100 AC PO Naloxone HCl 0.4 MG PRN PRN 12/13 2099 AC IV Ondansetron HCl 4 MG Q6H PRN 12/13 2099 AC IV Dose Instructions: (1)Acetaminophen/Hydrocodone Bitart: 1 - 2 TABLETS (2)Hydrocortisone: APPLY TO AFFECTED AREA (3)Nystatin: TO AFFECTED AREA Allergies Coded Allergies: Codeine (03/31/12) Physical Exam Vital Signs / I&Os Vital Signs Date Time Temp Pulse Resp B/P Pulse O2 O2 Flow FiO2 Ox Delivery Rate 12/16 1643 98.2 65 20 137/75 88 Nasal 2.0 Cannula 12/16 1406 98.6 74 20 135/54 91 Nasal 2.0 Cannula 12/16 1340 2.0 12/16 1330 75 12/16 1110 98.8 66 22 137/55 92 2.0 12/16 1000 Nasal 2.0 Cannula 12/16 0642 99.0 69 21 138/49 91 Nasal 4.0 Cannula 12/16 0226 98.1 80 22 169/52 93 Nasal 4.0 Cannula 12/16 0130 Nasal 4.0 Cannula 12/16 0108 4.0 12/15 2256 98.1 90 20 130/46 96 Nasal 4.0 Cannula 12/15 2030 4.0 12/15 1934 4.0 12/15 1906 98.1 61 20 143/51 94 Nasal 4.0 Cannula I&O 12/16 0000 12/15 1600 12/15 0800 Intake Total 500 1440 1500 Output Total 155 396 9693 Balance -375 1140 500 General Appearance Cooperative, No acute distress, slightly lethargic Lungs Scattered rhonchi. No rales noted. Cardiovascular Regular rate and rhythm, Normal S1 and S2 Abdomen Normal bowel sounds, Soft, pendulous Extremities No cyanosis, No clubbing, Edema unchanged Neurological Cranial nerves intact, No lateralizing signs Psych/Mental Status Confused, mood depressed LAB Results Laboratory Tests 12/16 12/16 12/15 0603 0603 2004 Blood Gas Sample Site LR Total CO2 (24.0 - 30.0 mmol/L) 26.4 ABG pH (7.35 - 7.45) 7.42 ABG pCO2 at Pt Temp (35 - 45 mmHg) 39.2 ABG pO2 at Pt Temp (60.0 - 80.0 mmHg) 62.6 ABG HCO3 (20.0 - 26.0 mmol/L) 25.2 ABG O2 Sat Calc/Saeid (95.1 - 100.0 %) 93.3 ABG Base Excess (-6.0 - -6.0 mmol/L) 0.6 ABG Reduced Hgb (%) 6.6 ABG Carboxyhemoglobin (0.5 - 1.5 %) 2.7 ABG Methemoglobin (0.4 - 1.5 %) -0.5 Vivek Test YES Other Total Hgb (14.0 - 18.0 g/dL) 7.6 A-a O2 Gradient (7.0 - 14.0 mmHg) 150.6 Hgb O2 Saturation (95.0 - 100.0 %) 91.2 Respiration Rate (/MIN) 18 O2 Liters/Min (0 - 20 L/MIN) 4 Vent Mode NC FiO2 (20 - 101 %) 36 Chemistry Plasma Sodium (136 - 145 mmol/L) 142 Plasma Potassium (3.5 - 5.1 mmol/L) 4.4 Plasma Chloride (98 - 107 mmol/L) 108 CO2 (Enzymatic) (21 - 32 mmol/L) 25 BUN (7 - 18 mg/dL) 48 Creatinine (0.6 - 1.3 mg/dL) 1.4 Est GFR ( Amer) (mL/min) >60 Est GFR (Non-Af Amer) (mL/min) 50.95 Glucose (70 - 110 mg/dL) 154 Plasma Calcium (8.5 - 10.1 mg/dL) 7.6 B-Natriuretic Peptide (5 - 100 pg/ml) 792 Coagulation Protein C Antigen Pending Hematology WBC (4.5 - 11.5 K/uL) 8.6 RBC (4.50 - 5.90 M/uL) 3.75 Hgb (13.5 - 17.5 gm/dL) 7.4 Hct (41.0 - 53.0 %) 25.8 MCV (80 - 100 fL) 69 MCH (26 - 34 pg) 20 RDW (11.6 - 14.8 %) 22.4 Neut % (Auto) (50 - 75 %) 73.1 Lymph % (Auto) (25 - 40 %) 11.5 [place] % (Auto) (3 - 14 %) 10.6 Eos % (Auto) (0 - 4 %) 4.3 Baso % (Auto) (0 - 2 %) 0.5 Plt Count, EDTA (150 - 400 K/uL) 217 RBC Morphology (36294 A) 1+ OVALOCYTOSIS PUBS MCHC (31 - 37 g/dL) 29 Assessment and Plan Problem List 1. COPD (chronic obstructive pulmonary disease) Plan -Stable -Pulmonary exam improved -Continue DuoNeb every 6 hours -Supplemental oxygen as necessary 2. Generalized weakness Plan -Patient with generalized weakness -Status unchanged -Patient will require chcf placement due to morbid obesity, generalized weakness and inability to perform any ADLs. 3. Chronic anticoagulation Status Chronic Onset Date Unknown Plan -INR elevated 4.1 -Hold Coumadin -Monitor 4. Iron deficiency anemia Status Chronic Onset Date Unknown Plan -Patient with findings of iron deficiency anemia -Ferrous Sulfate 325 mg by mouth twice a day -Monitor 5. Atrial fibrillation Plan -Normal sinus rhythm -Monitor 6. Essential hypertension Plan -Blood pressure well controlled -Low-salt diet -Monitor 7. Cellulitis Status Acute Onset Date Unknown Plan -The patient has erythematous patches present anterior peng bilaterally -We'll begin Bactrim DS 1 by mouth twice a day -Monitor 8. Prerenal azotemia Status Acute Onset Date Unknown Plan -Mild -Improved -Continue present therapy -Monitor Current status: Fair, stable Anticipated discharge date: Anticipated discharge in 1-2 days Anticipated discharge placement: [facility] facility Patient care time: Time spent in chart review, patient interview, physical exam, CPOE, and care documentation: 25 minutes Visit to patient today: 1 Complexity of care: Moderate
[2016-12-16 22:40] VITALS: BP 137/66
[2016-12-17 02:55] VITALS: BP 161/68
[2016-12-17 07:23] VITALS: BP 150/75
--- NOTE | 2016-12-17 08:14 | Progress Note ---
Subjective General Note Date: December 17, 2016 Admission Date: December 13, 2016 Hospital Day: 5 PCP: Shorty Ibarra-[facility] [place] Status: Inpatient Advanced Directive: FULL CODE Room: 207 Brief History: The patient is a 86-year-old white male with a significant past medical history of morbid obesity, COPD, coronary artery disease, hypertension, chronic anticoagulation, atrial fibrillation, heart block status post pacemaker placement, who presented to [facility] emergency department secondary to generalized weakness. [facility] ER evaluation was consistent with acute renal insufficiency, generalized weakness, hypertension, and paroxysmal atrial fibrillation. Secondary to the above, the patient was admitted by Yao Vivar M.D. for further evaluation and treatment. For other history present illness, past medical history, family history, social history, review of systems, and admission physical examination please see the patient's history and physical examination and ER visit note in the patient's medical record. Subjective: The patient states his status remains unchanged. Pain adequately controlled. Mild shortness of breath. Complains of constipation. Persistent peripheral edema Patient requests: The patient wishes something for constipation Medications and Allergies Medications Current Medications Sig/Irlanda Start time Last Medication Dose Route Stop Time Status Admin Ropinirole HCl 2 MG QHS 12/16 2100 AC 12/16 PO 2132 Furosemide 40 MG DAILY 12/16 1800 AC 12/16 IV 1854 Trimethoprim/ 1 TAB BID 12/16 1700 AC 12/16 Sulfamethoxazole PO 2132 Gabapentin 300 MG TID 12/16 1400 AC 12/17 PO 0615 Finasteride 5 MG DAILY 12/16 1111 AC 12/16 PO 1330 Ferrous Sulfate 325 MG BIDWC 12/16 0900 AC 12/16 PO 1812 Albuterol/Ipratropium 3 ML RTQ6H 12/16 0200 AC 12/17 IN 0744 Acetaminophen/ See Dose Q4H PRN 12/15 2015 AC 12/17 Hydrocodone Bitart Insts (1) PO 0722 Hydrocortisone See Dose TID 12/15 1400 AC 12/17 Insts (2) TOP 0615 Nystatin See Dose TID 12/14 2200 AC 12/17 Insts (3) TOP 0615 Digoxin 250 MCG DAILY@1400 / 1400 AC 12/16 PO 1330 Amlodipine Besylate 10 MG DAILY 12/14 0900 AC 12/16 PO 0906 Clopidogrel Bisulfate 75 MG DAILY 12/14 0900 AC 12/16 PO 0906 Acetaminophen 650 MG Q6H PRN 12/13 2129 AC 12/15 PO 1957 Docusate Sodium 250 MG BID PRN 12/13 2099 AC PO Naloxone HCl 0.4 MG PRN PRN 12/13 2099 AC IV Ondansetron HCl 4 MG Q6H PRN 12/13 2099 AC IV Dose Instructions: (1)Acetaminophen/Hydrocodone Bitart: 1 - 2 TABLETS (2)Hydrocortisone: APPLY TO AFFECTED AREA (3)Nystatin: TO AFFECTED AREA Allergies Coded Allergies: Codeine (03/31/12) Physical Exam Vital Signs / I&Os Vital Signs Date Time Temp Pulse Resp B/P Pulse O2 O2 Flow FiO2 Ox Delivery Rate 12/17 0723 98.2 66 24 150/75 90 Nasal 3.5 Cannula 12/17 0255 98.4 70 20 161/68 87 Nasal 3.5 Cannula 12/17 0149 3.0 12/16 2240 98.1 67 20 137/66 91 Nasal 3.0 Cannula 12/16 2020 Nasal 2.0 Cannula 12/16 2012 2.0 12/16 1831 92 2.0 12/16 1643 98.2 65 20 137/75 88 Nasal 2.0 Cannula 12/16 1406 98.6 74 20 135/54 91 Nasal 2.0 Cannula 12/16 1340 2.0 12/16 1330 75 12/16 1110 98.8 66 22 137/55 92 2.0 03 1000 Nasal 2.0 Cannula I&O 12/17 0000 12/16 1600 12/16 0800 Intake Total 480 600 Output Total 1100 775 400 Balance -620 -175 -400 General Appearance Oriented X3, Cooperative, No acute distress, slight lethargy Lungs Scattered rhonchi, minimal expiratory wheezes Cardiovascular Regular rate and rhythm, Normal S1 and S2 Abdomen Normal bowel sounds, Soft, No tenderness, pendulous Extremities No cyanosis, No clubbing, Lower extremity edema unchanged Neurological Cranial nerves intact, No lateralizing signs Psych/Mental Status Mental status normal, mood depressed LAB Results Laboratory Tests 12/17 12/16 0530 1700 Chemistry Plasma Sodium (136 - 145 mmol/L) 143 Plasma Potassium (3.5 - 5.1 mmol/L) 4.6 Plasma Chloride (98 - 107 mmol/L) 109 CO2 (Enzymatic) (21 - 32 mmol/L) 28 BUN (7 - 18 mg/dL) 38 Creatinine (0.6 - 1.3 mg/dL) 1.1 Est GFR ( Amer) (mL/min) >60 Est GFR (Non-Af Amer) (mL/min) >60 Glucose (70 - 110 mg/dL) 129 Plasma Calcium (8.5 - 10.1 mg/dL) 7.6 TSH 3rd Generation (0.30 - 3.74 uIU/mL) 1.318 Coagulation INR (0.8 - 1.2) 4.1 Hematology WBC (4.5 - 11.5 K/uL) 9.3 RBC (4.50 - 5.90 M/uL) 3.77 Hgb (13.5 - 17.5 gm/dL) 7.4 Hct (41.0 - 53.0 %) 25.8 MCV (80 - 100 fL) 69 MCH (26 - 34 pg) 20 RDW (11.6 - 14.8 %) 23.4 Neut % (Auto) (50 - 75 %) 75.2 Lymph % (Auto) (25 - 40 %) 9.3 [place] % (Auto) (3 - 14 %) 9.3 Eos % (Auto) (0 - 4 %) 5.9 Baso % (Auto) (0 - 2 %) 0.3 Plt Count, EDTA (150 - 400 K/uL) 218 RBC Morphology (96454 A) RARE SICKLE CELL PUBS MCHC (31 - 37 g/dL) 29 Toxicology Digoxin (0.9 - 2.0 ng/mL) 1.0 Assessment and Plan Problem List 1. COPD (chronic obstructive pulmonary disease) Plan -Stable persistent mild bronchospasm -Continue DuoNeb, add Pulmicort to current regimen -O2 requirements unchanged -Monitor 2. Generalized weakness Plan -Persistent generalized weakness -Continue physical therapy -Plan placement in [facility] facility for ongoing rehabilitation 3. Chronic anticoagulation Status Chronic Onset Date Unknown Plan -Patient with supratherapeutic INR -Hold Coumadin -Recheck INR today 4. Iron deficiency anemia Status Chronic Onset Date Unknown Plan -Patient with findings of iron deficiency anemia -Ferrous sulfate 325 mg by mouth twice a day -Monitor -Patient will require GI workup if not performed previously 5. Prerenal azotemia Status Acute Onset Date Unknown Plan -Improved -Continue Lasix 40 mg IV twice a day -Monitor 6. Cellulitis Status Acute Onset Date Unknown Plan -Patient with areas of erythema anterior shins bilaterally -Stable -Continue Bactrim DS one by mouth twice a day -Monitor 7. Atrial fibrillation Plan -Stable -Normal sinus rhythm -Monitor 8. Constipation Status Acute Onset Date Unknown Plan -Patient with reports of constipation -MiraLAX 17 g in 8 ounces of water twice a day -Colace 250 mg by mouth twice a day -Monitor 9. Essential hypertension Plan -Blood pressure adequately controlled -BP 150/75 mmHg this a.m. -Low-salt diet -Monitor Current status: Fair, stable Anticipated discharge date: Anticipated discharge in 2 days when appropriate assisted living/[facility] facility available [facility]ticipated [facility] Patient care time: Time spent in chart review, patient interview, physical exam, CPOE, and care documentation: 35 minutes Visit to patient today: 1 Complexity of care: High E&M Codes Rounding: Inpt-High/[id number]
[2016-12-17 11:38] VITALS: BP 127/51
[2016-12-17 14:26] VITALS: BP 142/54
[2016-12-17 18:49] VITALS: BP 160/68
[2016-12-17 21:52] VITALS: BP 145/46
[2016-12-18] VITALS (16 sets, daily range): BP systolic 100–178; BP diastolic 44–120
--- NOTE | 2016-12-18 14:02 | Progress Note ---
Subjective General Note Date: December 18, 2016 Admission Date: December 13, 2016 Hospital Day: 6 PCP: Shorty Ibarra-[facility] [place] Status: Inpatient Advanced Directive: FULL CODE Room: 207 Brief History: The patient is a 86-year-old white male with a significant past medical history of morbid obesity, COPD, coronary artery disease, hypertension, chronic anticoagulation, atrial fibrillation, heart block status post pacemaker placement, who presented to [facility] emergency department secondary to generalized weakness. [facility] ER evaluation was consistent with acute renal insufficiency, generalized weakness, hypertension, and paroxysmal atrial fibrillation. Secondary to the above, the patient was admitted by Yao Vivar M.D. for further evaluation and treatment. For other history present illness, past medical history, family history, social history, review of systems, and admission physical examination please see the patient's history and physical examination and ER visit note in the patient's medical record. Subjective: The patient states his status remains unchanged. Pain adequately controlled. Mild shortness of breath. Persistent peripheral edema Patient requests: None Medications and Allergies Medications Current Medications Sig/Irlanda Start time Last Medication Dose Route Stop Time Status Admin Budesonide 0.5 MG RTBID 12/18 2099 AC IN Baclofen 5 MG TID 12/17 2200 AC 12/18 PO 0617 Furosemide 40 MG BID 12/17 2100 AC 12/18 IV 0926 Albuterol Sulfate 2.5 MG RTQ3H PRN 12/17 2030 AC 12/17 IN 2159 Lorazepam See Dose Q4H PRN 12/17 2030 AC Insts (1) IV Morphine Sulfate See Dose Q4H PRN 12/17 2030 AC Insts (2) IV Polyethylene Glycol 17 GM BID PRN 12/17 1630 AC 12/18 PO 0634 Ropinirole HCl 2 MG QHS 12/16 2100 AC 12/17 PO 2051 Trimethoprim/ 1 TAB BID 12/16 1700 AC 12/18 Sulfamethoxazole PO 0926 Gabapentin 300 MG TID 12/16 1400 AC 12/18 PO 0616 Finasteride 5 MG DAILY 12/16 1111 AC 12/18 PO 0926 Ferrous Sulfate 325 MG BIDWC 12/16 0900 AC 12/18 PO 0926 Albuterol/Ipratropium 3 ML RTQ6H 12/16 0200 AC 12/18 IN 0730 Acetaminophen/ See Dose Q4H PRN 12/15 2015 AC 03/05 Hydrocodone Bitart Insts (3) PO 1216 Hydrocortisone See Dose TID / 1400 AC 03 Insts (4) TOP 0616 Nystatin See Dose TID 12/14 2200 AC 12/18 Insts (5) TOP 0616 Digoxin 250 MCG DAILY@1400 03/ 1400 AC 03/04 PO 1500 Amlodipine Besylate 10 MG DAILY 12/14 0900 AC 03/ PO 0926 Clopidogrel Bisulfate 75 MG DAILY 12/14 0900 AC 12/18 PO 0926 Acetaminophen 650 MG Q6H PRN 12/13 2130 AC / PO 1850 Docusate Sodium 250 MG BID PRN 12/13 2100 AC 12/18 PO 0634 Naloxone HCl 0.4 MG PRN PRN 12/13 2100 AC IV Ondansetron HCl 4 MG Q6H PRN 12/13 2100 AC IV Dose Instructions: (1)Lorazepam: 0.5 - 1 MG (2)Morphine Sulfate: 1 - 2 MG (3)Acetaminophen/Hydrocodone Bitart: 1 - 2 TABLETS (4)Hydrocortisone: APPLY TO AFFECTED AREA (5)Nystatin: TO AFFECTED AREA Allergies Coded Allergies: Codeine (03/31/12) Physical Exam Vital Signs / I&Os Vital Signs Date Time Temp Pulse Resp B/P Pulse O2 O2 Flow FiO2 Ox Delivery Rate 03/ 1107 98.8 71 21 133/61 90 Nasal 4.0 Cannula 03/05 0730 4.0 03/05 0720 98.4 67 21 143/64 96 Mask 4.0 03/05 0227 4.0 03/05 0208 98.4 77 20 135/81 96 Mask 2.0 03/2158 5.0 03/2151 98.1 75 28 145/46 85 Nasal 5.0 Cannula 03/04 2035 5.0 03/2014 Nasal 5.0 Cannula 03/04 1858 5.0 03/04 1849 98.4 68 24 160/68 92 Nasal 5.0 Cannula 03/04 1500 86 03/04 1426 98.1 75 24 142/54 90 Nasal 3.5 Cannula 03/04 1400 3.5 I&O 03/05 0000 03/04 1600 03/04 0800 Intake Total 815 1560 300 Output Total 775 1050 575 Balance 40 510 -275 General Appearance Alert, Oriented X3, Cooperative, No acute distress Lungs Scattered rhonchi, minimal expiratory wheezes Cardiovascular Regular rate and rhythm, Normal S1 and S2 Abdomen Normal bowel sounds, Soft, No tenderness, pendulous Extremities No cyanosis, No clubbing, edema unchanged Neurological Cranial nerves intact, No lateralizing signs Psych/Mental Status Mental status normal, depressed mood LAB Results Laboratory Tests 12/18 12/18 12/17 0910 0515 1800 Chemistry Plasma Sodium (136 - 145 mmol/L) 141 Plasma Potassium (3.5 - 5.1 mmol/L) 5.1 Plasma Chloride (98 - 107 mmol/L) 107 CO2 (Enzymatic) (21 - 32 mmol/L) 27 BUN (7 - 18 mg/dL) 35 Creatinine (0.6 - 1.3 mg/dL) 1.4 Est GFR ( Amer) (mL/min) >60 Est GFR (Non-Af Amer) (mL/min) 50.95 Glucose (70 - 110 mg/dL) 188 Plasma Calcium (8.5 - 10.1 mg/dL) 7.7 Coagulation INR (0.8 - 1.2) 3.7 4.4 Hematology WBC (4.5 - 11.5 K/uL) 8.6 RBC (4.50 - 5.90 M/uL) 3.64 Hgb (13.5 - 17.5 gm/dL) 7.2 Hct (41.0 - 53.0 %) 25.0 MCV (80 - 100 fL) 69 MCH (26 - 34 pg) 20 RDW (11.6 - 14.8 %) 22.8 Neut % (Auto) (50 - 75 %) 89 Lymph % (Auto) (25 - 40 %) 3 [place] % (Auto) (3 - 14 %) 0 Eos % (Auto) (0 - 4 %) 0 Baso % (Auto) (0 - 2 %) 0 Band Neutrophils % (0 - 8 %) 8 Metamyelocytes % (0 - 1 %) 0 Myelocytes (0 - 1 %) 0 Other Cell Type RARE GIANT PLATELET Plt Count, EDTA (150 - 400 K/uL) 219 RBC Morphology RARE SICKLE CELL Polychromasia 1+ Hypochromic-Microcytic 3+ Poikilocytosis (manual 1+ Anisocytosis (manual) 3+ Microcytosis (manual) 2+ Tear Drop Cells 1+ Schistocytes 1+ PUBS MCHC (31 - 37 g/dL) 29 Assessment and Plan Problem List 1. Constipation Status Acute Onset Date Unknown Plan -Magnesium citrate 300 cc by mouth now -Continue MiraLAX/Colace -Monitor 2. Cellulitis Status Acute Onset Date Unknown Plan -Improved -Continue Bactrim DS 1 by mouth daily -Monitor 3. Prerenal azotemia Status Acute Onset Date Unknown Plan -Improved -Monitor -BUN/creatinine today are 35/1.4 4. COPD (chronic obstructive pulmonary disease) Plan -Stable -Persistent O2 requirement -Continue DuoNeb, albuterol, Pulmicort -Incentive spirometry -Monitor 5. Generalized weakness Plan -Unchanged -Continue physical therapy -Plan transfer to nursing home facility with ongoing physical therapy 6. Chronic anticoagulation Status Chronic Onset Date Unknown Plan -INR remains slightly elevated -INR 3.7 -Hold Coumadin -Monitor 7. Iron deficiency anemia Status Chronic Onset Date Unknown Plan -Patient with findings of iron deficiency anemia -Continue ferrous sulfate 325 mg by mouth twice a day -Monitor -H&H today 7.2/25.0 -Transfuse 2 units packed RBCs secondary to COPD/CAD -Monitor 8. Atrial fibrillation Plan -Stable -Patient remains in normal sinus rhythm -Monitor -Digoxin level therapeutic 1.0 9. Essential hypertension Plan -Stable -BP 133/61 -Low-salt diet -Monitor Current status: Fair, stable Anticipated discharge date: Anticipated discharge in a.m. Anticipated discharge placement: [facility] facility Patient care time: Time spent in chart review, patient interview, physical exam, CPOE, and care documentation: 25 minutes Visit to patient today: 1 Complexity of care: Moderate E&M Codes Rounding: Inpt-Moderate/[id number]
[2016-12-19 01:52] VITALS: BP 147/77
[2016-12-19 07:19] VITALS: BP 118/49
--- NOTE | 2016-12-19 09:40 | Progress Note ---
Subjective General Subjective General Note Date: December 18, 2016 Admission Date: December 13, 2016 Hospital Day: 6 PCP: Shorty Ibarra-[facility] Status: Inpatient Advanced Directive: FULL CODE Room: 207 Brief History: The patient is a 86-year-old white male with a significant past medical history of morbid obesity, COPD, coronary artery disease, hypertension, chronic anticoagulation, atrial fibrillation, heart block status post pacemaker placement, who presented to [facility] emergency department secondary to generalized weakness. [facility] ER evaluation was consistent with acute renal insufficiency, generalized weakness, hypertension, and paroxysmal atrial fibrillation. Secondary to the above, the patient was admitted by Yao Vivar M.D. for further evaluation and treatment. For other history present illness, past medical history, family history, social history, review of systems, and admission physical examination please see the patient's history and physical examination and ER visit note in the patient's medical record. Subjective: The patient states his status remains unchanged. Pain adequately controlled. Shortness of breath is improved. Persistent peripheral edema Constitutional Weakness. Denies: Fever, Chills, Sweats, Malaise, Other. Eyes Denies: Pain, Vision Change, Conjunctival Inflammation, Eyelid Inflammation, Redness, Other. ENT Denies: Ear Pain, Ear Discharge, Nose Pain, Nasal Discharge, Nasal Congestion, Mouth Pain, Mouth Swelling, Throat Pain, Throat Swelling, Other. Respiratory Cough, SOB w/exertion. Denies: Dry, Wheezing, Hemoptysis, Pleuritic Pain, Sputum, Other. Cardiovascular Edema. Denies: Chest Pain, Palpitations, Orthopnea, PND, Light-headedness, Other. Gastrointestinal Denies: Nausea, Vomiting, Abdominal Pain, Diarrhea, Constipation, Melena, Hematochezia, Other. Genitourinary Denies: Dysuria, Frequency, Incontinence, Hematuria, Retention, Other. Musculoskeletal Back Pain. Denies: Neck Pain, Shoulder Pain, Arm Pain, Hand Pain, Leg Pain, Foot Pain, Other. Skin Other. Denies: Rash, Lesions, Jaundice, Bruising. Neurological Denies: Weakness, Numbness, Incoordination, Change in speech, Confusion, Seizures, Other. Physical Exam Vital Signs / I&Os Vital Signs Date Time Temp Pulse Resp B/P Pulse O2 O2 Flow FiO2 Ox Delivery Rate 12/19 0854 4.0 12/19 0749 3.5 03/06 0719 98.2 61 20 118/49 94 Nasal 4.0 Cannula 03/06 0152 98.1 75 24 147/77 90 Nasal 3.5 Cannula 03/06 0108 3.5 03/05 2325 66 20 100/63 89 Nasal 3.5 Cannula 03/05 2249 3.5 03/05 2223 97.7 73 16 139/56 97 Nasal 3.5 Cannula 03/05 2124 97.9 64 22 125/52 92 Nasal 3.5 Cannula 03/05 2102 3.5 03/05 2048 98.2 03/05 2047 74 22 126/75 85 Nasal 3.5 Cannula 03/05 2030 97.7 69 20 129/49 90 Nasal 3.5 Cannula 03/05 2019 Nasal 3.5 Cannula 03/05 2016 97.5 69 22 124/63 90 Nasal 3.5 Cannula 03/05 2004 98.2 76 22 120/94 91 Nasal 3.5 Cannula 03/05 1953 3.5 03/05 1907 69 22 108/44 91 Nasal 3.5 Cannula 03/05 1800 78 22 178/66 89 Nasal 3.5 Cannula 03/05 1727 98.2 66 20 148/64 92 CPAP 3.5 03/05 1715 62 158/61 03/05 1659 98.1 69 16 154/68 91 CPAP 3.5 03/05 1602 97.9 71 22 156/68 89 CPAP 3.5 03/05 1430 82 03/05 1107 98.8 71 21 133/61 90 Nasal 4.0 Cannula I&O 03/05 0800 03/05 1600 03/06 0000 Intake Total 202 387 5769 Output Total 650 500 475 Balance -350 -260 645 General Appearance Alert, Oriented X3, No acute distress HEENT Normal exam, PERRLA, Moist mucous membranes Lungs Normal exam, Clear to auscultation Neck Supple, No JVD, No thyromegaly, No lymphadenopathy Cardiovascular Regular rate and rhythm, Normal S1 and S2, No murmurs, gallops, rubs Abdomen Normal bowel sounds, Soft, No tenderness, No rebound, No masses, No hepatosplenomegaly Extremities - bilateral edema present Skin - venous stasis bilaterally Neurological Sensation intact, Cranial nerves intact, No lateralizing signs Psych/Mental Status Mental status normal LAB Results Laboratory Tests 12/19 02/ 0515 0525 Chemistry Plasma Sodium (136 - 145 mmol/L) 139 Plasma Potassium (3.5 - 5.1 mmol/L) 5.2 Plasma Chloride (98 - 107 mmol/L) 105 CO2 (Enzymatic) (21 - 32 mmol/L) 27 BUN (7 - 18 mg/dL) 41 Creatinine (0.6 - 1.3 mg/dL) 1.5 Est GFR ( Amer) (mL/min) 57.03 Est GFR (Non-Af Amer) (mL/min) 47.05 Glucose (70 - 110 mg/dL) 147 Plasma Calcium (8.5 - 10.1 mg/dL) 7.7 Coagulation INR (0.8 - 1.2) 2.8 Hematology WBC (4.5 - 11.5 K/uL) 12.9 RBC (4.50 - 5.90 M/uL) 3.93 Hgb (13.5 - 17.5 gm/dL) 8.5 Hct (41.0 - 53.0 %) 28.5 MCV (80 - 100 fL) 73 MCH (26 - 34 pg) 22 RDW (11.6 - 14.8 %) 23.8 Neut % (Auto) (50 - 75 %) 76.7 Lymph % (Auto) (25 - 40 %) 11.2 [place] % (Auto) (3 - 14 %) 8.0 Eos % (Auto) (0 - 4 %) 3.3 Baso % (Auto) (0 - 2 %) 0.8 Plt Count, EDTA (150 - 400 K/uL) 206 RBC Morphology (14974 A) RARE SICKLE CELL PUBS MCHC (31 - 37 g/dL) 30 Assessment and Plan Problem List 1. Constipation Status Acute Onset Date Unknown Plan - resolved patient is no longer constipated - will continue with scheduled colace and miralax 2. Cellulitis Status Acute Onset Date Unknown Plan - improved - pt will need to continue oral bactrim for the next four days 3. Prerenal azotemia Status Acute Onset Date Unknown Plan - resolved - currently renal function is appropriate for age and body habitus 4. COPD (chronic obstructive pulmonary disease) Plan -Stable -Persistent O2 requirement -Continue DuoNeb, albuterol, Pulmicort -Incentive spirometry -Monitor 5. Generalized weakness Plan -Unchanged -Continue physical therapy -[facility] with [facility] 6. Chronic anticoagulation Status Chronic Onset Date Unknown Plan - pt on coumadin for atrial fibrillation - currently INR is 2.8 - will resume home dose of coumadin 2 mg daily 7. Iron deficiency anemia Status Chronic Onset Date Unknown 8. Atrial fibrillation Plan -Stable -Patient remains in normal sinus rhythm -continue with digoxin at current dose -Monitor 9. Essential hypertension Plan -Stable -BP 133/61 -Low-salt diet -Monitor
--- NOTE | 2016-12-19 09:40 | Progress Note ---
Subjective General Subjective General Note Date: December 18, 2016 Admission Date: December 13, 2016 Hospital Day: 6 PCP: Shorty Ibarra-[facility] Status: Inpatient Advanced Directive: FULL CODE Room: 207 Brief History: The patient is a 86-year-old white male with a significant past medical history of morbid obesity, COPD, coronary artery disease, hypertension, chronic anticoagulation, atrial fibrillation, heart block status post pacemaker placement, who presented to [facility] emergency department secondary to generalized weakness. [facility] ER evaluation was consistent with acute renal insufficiency, generalized weakness, hypertension, and paroxysmal atrial fibrillation. Secondary to the above, the patient was admitted by Yao Vivar M.D. for further evaluation and treatment. For other history present illness, past medical history, family history, social history, review of systems, and admission physical examination please see the patient's history and physical examination and ER visit note in the patient's medical record. Subjective: The patient states his status remains unchanged. Pain adequately controlled. Shortness of breath is improved. Persistent peripheral edema Constitutional Weakness. Denies: Fever, Chills, Sweats, Malaise, Other. Eyes Denies: Pain, Vision Change, Conjunctival Inflammation, Eyelid Inflammation, Redness, Other. ENT Denies: Ear Pain, Ear Discharge, Nose Pain, Nasal Discharge, Nasal Congestion, Mouth Pain, Mouth Swelling, Throat Pain, Throat Swelling, Other. Respiratory Cough, SOB w/exertion. Denies: Dry, Wheezing, Hemoptysis, Pleuritic Pain, Sputum, Other. Cardiovascular Edema. Denies: Chest Pain, Palpitations, Orthopnea, PND, Light-headedness, Other. Gastrointestinal Denies: Nausea, Vomiting, Abdominal Pain, Diarrhea, Constipation, Melena, Hematochezia, Other. Genitourinary Denies: Dysuria, Frequency, Incontinence, Hematuria, Retention, Other. Musculoskeletal Back Pain. Denies: Neck Pain, Shoulder Pain, Arm Pain, Hand Pain, Leg Pain, Foot Pain, Other. Skin Other. Denies: Rash, Lesions, Jaundice, Bruising. Neurological Denies: Weakness, Numbness, Incoordination, Change in speech, Confusion, Seizures, Other. Physical Exam Vital Signs / I&Os Vital Signs Date Time Temp Pulse Resp B/P Pulse O2 O2 Flow FiO2 Ox Delivery Rate 12/19 0854 4.0 12/19 0749 3.5 03/06 0719 98.2 61 20 118/49 94 Nasal 4.0 Cannula 03/06 0152 98.1 75 24 147/77 90 Nasal 3.5 Cannula 03/06 0108 3.5 03/05 2325 66 20 100/63 89 Nasal 3.5 Cannula 03/05 2249 3.5 03/05 2223 97.7 73 16 139/56 97 Nasal 3.5 Cannula 03/05 2124 97.9 64 22 125/52 92 Nasal 3.5 Cannula 03/05 2102 3.5 03/05 2048 98.2 03/05 2047 74 22 126/75 85 Nasal 3.5 Cannula 03/05 2030 97.7 69 20 129/49 90 Nasal 3.5 Cannula 03/05 2019 Nasal 3.5 Cannula 03/05 2016 97.5 69 22 124/63 90 Nasal 3.5 Cannula 03/05 2004 98.2 76 22 120/94 91 Nasal 3.5 Cannula 03/05 1953 3.5 03/05 1907 69 22 108/44 91 Nasal 3.5 Cannula 03/05 1800 78 22 178/66 89 Nasal 3.5 Cannula 03/05 1727 98.2 66 20 148/64 92 CPAP 3.5 03/05 1715 62 158/61 03/05 1659 98.1 69 16 154/68 91 CPAP 3.5 03/05 1602 97.9 71 22 156/68 89 CPAP 3.5 03/05 1430 82 03/05 1107 98.8 71 21 133/61 90 Nasal 4.0 Cannula I&O 03/05 0800 03/05 1600 03/06 0000 Intake Total 730 984 6709 Output Total 650 500 475 Balance -350 -260 645 General Appearance Alert, Oriented X3, No acute distress HEENT Normal exam, PERRLA, Moist mucous membranes Lungs Normal exam, Clear to auscultation Neck Supple, No JVD, No thyromegaly, No lymphadenopathy Cardiovascular Regular rate and rhythm, Normal S1 and S2, No murmurs, gallops, rubs Abdomen Normal bowel sounds, Soft, No tenderness, No rebound, No masses, No hepatosplenomegaly Extremities - bilateral edema present Skin - venous stasis bilaterally Neurological Sensation intact, Cranial nerves intact, No lateralizing signs Psych/Mental Status Mental status normal LAB Results Laboratory Tests 12/19 02/ 0515 0525 Chemistry Plasma Sodium (136 - 145 mmol/L) 139 Plasma Potassium (3.5 - 5.1 mmol/L) 5.2 Plasma Chloride (98 - 107 mmol/L) 105 CO2 (Enzymatic) (21 - 32 mmol/L) 27 BUN (7 - 18 mg/dL) 41 Creatinine (0.6 - 1.3 mg/dL) 1.5 Est GFR ( Amer) (mL/min) 57.03 Est GFR (Non-Af Amer) (mL/min) 47.05 Glucose (70 - 110 mg/dL) 147 Plasma Calcium (8.5 - 10.1 mg/dL) 7.7 Coagulation INR (0.8 - 1.2) 2.8 Hematology WBC (4.5 - 11.5 K/uL) 12.9 RBC (4.50 - 5.90 M/uL) 3.93 Hgb (13.5 - 17.5 gm/dL) 8.5 Hct (41.0 - 53.0 %) 28.5 MCV (80 - 100 fL) 73 MCH (26 - 34 pg) 22 RDW (11.6 - 14.8 %) 23.8 Neut % (Auto) (50 - 75 %) 76.7 Lymph % (Auto) (25 - 40 %) 11.2 [place] % (Auto) (3 - 14 %) 8.0 Eos % (Auto) (0 - 4 %) 3.3 Baso % (Auto) (0 - 2 %) 0.8 Plt Count, EDTA (150 - 400 K/uL) 206 RBC Morphology (23913 A) RARE SICKLE CELL PUBS MCHC (31 - 37 g/dL) 30 Assessment and Plan Problem List 1. Constipation Status Acute Onset Date Unknown Plan - resolved patient is no longer constipated - will continue with scheduled colace and miralax 2. Cellulitis Status Acute Onset Date Unknown Plan - improved - pt will need to continue oral bactrim for the next four days 3. Prerenal azotemia Status Acute Onset Date Unknown Plan - resolved - currently renal function is appropriate for age and body habitus 4. COPD (chronic obstructive pulmonary disease) Plan -Stable -Persistent O2 requirement -Continue DuoNeb, albuterol, Pulmicort -Incentive spirometry -Monitor 5. Generalized weakness Plan -Unchanged -Continue physical therapy -Plan transfer to group home facility with ongoing physical therapy 6. Chronic anticoagulation Status Chronic Onset Date Unknown Plan - pt on coumadin for atrial fibrillation - currently INR is 2.8 - will resume home dose of coumadin 2 mg daily 7. Iron deficiency anemia Status Chronic Onset Date Unknown 8. Atrial fibrillation Plan -Stable -Patient remains in normal sinus rhythm -continue with digoxin at current dose -Monitor 9. Essential hypertension Plan -Stable -BP 133/61 -Low-salt diet -Monitor
--- NOTE | 2016-12-19 09:53 | Discharge Summary ---
Discharge Summary Report Admit Date 12/13/16 Discharge Date 12/19/16 Admission Diagnosis weakness, acute renal insuffiency, hypertension Discharge Diagnosis weakness, acute renal insuffiency, hypertension, cellulits Brief History The patient is a 86-year-old white male with a significant past medical history of morbid obesity, COPD, coronary artery disease, hypertension, chronic anticoagulation, atrial fibrillation, heart block status post pacemaker placement, who presented to [facility] emergency department secondary to generalized weakness. [facility] ER evaluation was consistent with acute renal insufficiency, generalized weakness, hypertension, and paroxysmal atrial fibrillation. Hospital Course Patient was admitted for generlaized weakness, renal insuffiency, supra therpeutic INR, and lower extremity swelling. Patient was treated for the aftorementioned, howevever while into his hospital course patient was noticed to have cellulitis of the lower extremities. Patient was put on antibiotics as a result. Patients INR was corrected with holding of his anticoagulants. Physical therapy saw the patient and recommended that the patient go to a retirement facility for rehab and improved functionality. Patient was additionally seen to have copd exacerbation. However upon investigation of the shortness of breath the patient was found to accentuate his breathing espicially in the upper airways to mimic the sound of wheezing. Patient was additonally seen to be persistantly anxious which led the patient to feel more short of breath. Upon examining the paitent when sleeping, all the symptoms that he decribed were non existant. Patient was given reassurance that his respiratory status is stable and he does not require additional intreventions. Pt was seen to be anemic from both iron defiency and anemia of chronic disease. Patient was given iron supplmentation however patient needs to have out patient work up of his chronic anemia, including colonoscopy, and if negative hematological follow up. Lastly patients hypertension was controlled with his home medications/. General Appearance Alert, Oriented X3, No acute distress HEENT PERRLA, Mucous membran moist/pink Lungs Normal air movement, - upper airway stridor, when asked to breath through the nose the stridor dissipated Cardiovascular - irregularly irregula heart beat Abdomen Normal bowel sounds, Soft, No tenderness, No hepatospenomegaly, No masses Skin No Rashes, No Breakdown, No Significant Lesions Neurological Normal speech, Strength at 5/5 X4 ext, Normal tone, Sensation intact Lab/Imaging Laboratory Tests 12/1915 0525 Chemistry Plasma Sodium (136 - 145 mmol/L) 139 Plasma Potassium (3.5 - 5.1 mmol/L) 5.2 Plasma Chloride (98 - 107 mmol/L) 105 CO2 (Enzymatic) (21 - 32 mmol/L) 27 BUN (7 - 18 mg/dL) 41 Creatinine (0.6 - 1.3 mg/dL) 1.5 Est GFR ( Amer) (mL/min) 57.03 Est GFR (Non-Af Amer) (mL/min) 47.05 Glucose (70 - 110 mg/dL) 147 Plasma Calcium (8.5 - 10.1 mg/dL) 7.7 Coagulation INR (0.8 - 1.2) 2.8 Hematology WBC (4.5 - 11.5 K/uL) 12.9 RBC (4.50 - 5.90 M/uL) 3.93 Hgb (13.5 - 17.5 gm/dL) 8.5 Hct (41.0 - 53.0 %) 28.5 MCV (80 - 100 fL) 73 MCH (26 - 34 pg) 22 RDW (11.6 - 14.8 %) 23.8 Neut % (Auto) (50 - 75 %) 76.7 Lymph % (Auto) (25 - 40 %) 11.2 [place] % (Auto) (3 - 14 %) 8.0 Eos % (Auto) (0 - 4 %) 3.3 Baso % (Auto) (0 - 2 %) 0.8 Plt Count, EDTA (150 - 400 K/uL) 206 RBC Morphology ([id number] A) RARE SICKLE CELL PUBS MCHC (31 - 37 g/dL) 30 Discharge Instructions/Meds - c/w home medications - resume coumadin - follow up with your pmd and make arrangements for colonoscopy
--- NOTE | 2016-12-19 09:53 | Discharge Summary ---
Discharge Summary Report Admit Date 12/13/16 Discharge Date 12/19/16 Admission Diagnosis weakness, acute renal insuffiency, hypertension Discharge Diagnosis weakness, acute renal insuffiency, hypertension, cellulits Brief History The patient is a 86-year-old white male with a significant past medical history of morbid obesity, COPD, coronary artery disease, hypertension, chronic anticoagulation, atrial fibrillation, heart block status post pacemaker placement, who presented to [facility] emergency department secondary to generalized weakness. [facility] ER evaluation was consistent with acute renal insufficiency, generalized weakness, hypertension, and paroxysmal atrial fibrillation. Hospital Course Patient was admitted for generlaized weakness, renal insuffiency, supra therpeutic INR, and lower extremity swelling. Patient was treated for the aftorementioned, howevever while into his hospital course patient was noticed to have cellulitis of the lower extremities. Patient was put on antibiotics as a result. Patients INR was corrected with holding of his anticoagulants. Physical therapy saw the patient and recommended that the patient go to a detention facility for rehab and improved functionality. Patient was additionally seen to have copd exacerbation. However upon investigation of the shortness of breath the patient was found to accentuate his breathing espicially in the upper airways to mimic the sound of wheezing. Patient was additonally seen to be persistantly anxious which led the patient to feel more short of breath. Upon examining the paitent when sleeping, all the symptoms that he decribed were non existant. Patient was given reassurance that his respiratory status is stable and he does not require additional intreventions. Pt was seen to be anemic from both iron defiency and anemia of chronic disease. Patient was given iron supplmentation however patient needs to have out patient work up of his chronic anemia, including colonoscopy, and if negative hematological follow up. Lastly patients hypertension was controlled with his home medications/. General Appearance Alert, Oriented X3, No acute distress HEENT PERRLA, Mucous membran moist/pink Lungs Normal air movement, - upper airway stridor, when asked to breath through the nose the stridor dissipated Cardiovascular - irregularly irregula heart beat Abdomen Normal bowel sounds, Soft, No tenderness, No hepatospenomegaly, No masses Skin No Rashes, No Breakdown, No Significant Lesions Neurological Normal speech, Strength at 5/5 X4 ext, Normal tone, Sensation intact Lab/Imaging Laboratory Tests 12/1915 0525 Chemistry Plasma Sodium (136 - 145 mmol/L) 139 Plasma Potassium (3.5 - 5.1 mmol/L) 5.2 Plasma Chloride (98 - 107 mmol/L) 105 CO2 (Enzymatic) (21 - 32 mmol/L) 27 BUN (7 - 18 mg/dL) 41 Creatinine (0.6 - 1.3 mg/dL) 1.5 Est GFR ( Amer) (mL/min) 57.03 Est GFR (Non-Af Amer) (mL/min) 47.05 Glucose (70 - 110 mg/dL) 147 Plasma Calcium (8.5 - 10.1 mg/dL) 7.7 Coagulation INR (0.8 - 1.2) 2.8 Hematology WBC (4.5 - 11.5 K/uL) 12.9 RBC (4.50 - 5.90 M/uL) 3.93 Hgb (13.5 - 17.5 gm/dL) 8.5 Hct (41.0 - 53.0 %) 28.5 MCV (80 - 100 fL) 73 MCH (26 - 34 pg) 22 RDW (11.6 - 14.8 %) 23.8 Neut % (Auto) (50 - 75 %) 76.7 Lymph % (Auto) (25 - 40 %) 11.2 [place] % (Auto) (3 - 14 %) 8.0 Eos % (Auto) (0 - 4 %) 3.3 Baso % (Auto) (0 - 2 %) 0.8 Plt Count, EDTA (150 - 400 K/uL) 206 RBC Morphology (71329 A) RARE SICKLE CELL PUBS MCHC (31 - 37 g/dL) 30 Discharge Instructions/Meds - c/w home medications - resume coumadin - follow up with your pmd and make arrangements for colonoscopy
[2016-12-19] MEDS ORDERED: BACTRIM DS1 TAB PO (09:58)
--- NOTE | 2016-12-19 10:01 | Provider's Discharge Care Plan ---
Problem, Goal, Plan Problem List 1. Cellulitis Instructions: - c.w bactrim for the next 5 days 2. Iron deficiency anemia Instructions: - take iron as recommended - follow up with your pmd. you will need a colonoscopy to investigate chronic anemia - if negative you will need to follow up with a human resource advisor 3. Chronic anticoagulation Instructions: Take meds as directed, - please monitor INR until steady state is reached 4. Anemia Instructions: Take meds as directed, - make arrangments for colonoscopy 5. Generalized weakness Instructions: - will need PT 6. COPD (chronic obstructive pulmonary disease) Instructions: Take meds as directed 7. Atrial fibrillation Instructions: Take meds as directed
--- NOTE | 2016-12-19 10:01 | Provider's Discharge Care Plan ---
Problem, Goal, Plan Problem List 1. Cellulitis Instructions: - c.w bactrim for the next 5 days 2. Iron deficiency anemia Instructions: - take iron as recommended - follow up with your pmd. you will need a colonoscopy to investigate chronic anemia - if negative you will need to follow up with a thread spooler 3. Chronic anticoagulation Instructions: Take meds as directed, - please monitor INR until steady state is reached 4. Anemia Instructions: Take meds as directed, - make arrangments for colonoscopy 5. Generalized weakness Instructions: - will need PT 6. COPD (chronic obstructive pulmonary disease) Instructions: Take meds as directed 7. Atrial fibrillation Instructions: Take meds as directed
[2016-12-19] MEDS ORDERED: FUROSEMIDE10 MG/ML PO (10:04)
[2016-12-19 11:53] VITALS: BP 146/71
[2016-12-19 13:09] VITALS: BP 146/71
== END 2016-12-19 13:25 | DRG 699 ==
LOC: ED SRH 17:47 → TRANS SRH 20:37 → ACUTE2 SRH 21:50
PROVIDERS: ADMIT Family Medicine
PROC: 30233N1 Transfusion of Nonautologous Red Blood Cells into Peripheral Vein, Percutaneous Approach (ICD-10-PCS; principal; 2016-12-18)
PROC: 30233N1 Transfusion of Nonautologous Red Blood Cells into Peripheral Vein, Percutaneous Approach (ICD-10-PCS; 2016-12-18)
DX: N28.9 Disorder of kidney and ureter, unspecified (principal); L03.116 Cellulitis of left lower limb; L03.115 Cellulitis of right lower limb; Z68.42 Body mass index [BMI] 45.0-49.9, adult; R53.1 Weakness; D50.9 Iron deficiency anemia, unspecified; D63.8 Anemia in other chronic diseases classified elsewhere; I48.91 Unspecified atrial fibrillation; Z79.01 Long term (current) use of anticoagulants; J44.9 Chronic obstructive pulmonary disease, unspecified; I10 Essential (primary) hypertension; E66.01 Morbid (severe) obesity due to excess calories; Z95.0 Presence of cardiac pacemaker; K59.00 Constipation, unspecified
CPT/HCPCS: 85241; 85243; 90001; 90004; 90047; 90074; 90100; 90155; 91004; 91295; 91320; 91504; 91505; 91544; 92668; 92670; 93020; 93140; 94060; 95011; 95059; 95061